=== PATIENT | female | born 1980 | race Caucasian/White ===

== ENCOUNTER 2020-01-24 18:52 | Emergency (ER) | payer BC ==
--- OUTSIDE RECORDS SUMMARY | 2020-01-24 18:54 | XMS REPORT | Summary of Care ---
:1980 Author Organization [facility] - [facility] Address [address] [place] [id number] Care Team Providers Name Role Phone Pcp, Patient Does Not Have A Primary Care Provider +1-000-00 0-0000 Reason for Visit Reason Comments Wound Auth/Cert Status Reason Specialty Diagnoses / Referred By Referred To Procedures Contact Contact Emergency Medicine [facility] Em ergency Dept [address] [place] [address] Fax: Encounter Details Date Type Department Care Team Description 12/02/2019 Emergency ADC-Emergency Radha Ramsay, PAC Cellulitis of right Department [address] [facility] [address] lopez (Primary Dx) [address] [place] [address] [phone] [place] [address] [phone] Allergies No Known Allergiesdocumented as of this encounter (statuses as of 12/02/2019) Medications Medication Sig Dispensed Refills Start Date End Date Status levoFLOXacin 750 mg Take 1 tablet 8 tablet 0 02/27/2018 Active tabletIndications: by mouth every Pyelonephritis 24 (twenty-four) hours. cyanocobalamin, Take 1,000 mcg 30 capsule 0 02/27/2018 Active vitamin B-12, 1,000 by mouth daily. mcg CapIndications: Pyelonephritis clindamycin 150 mg Take 3 capsules 90 capsule 0 12/02/201907/2019 Active capsuleIndications: by mouth 3 Cellulitis of right (three) times hand daily for 10 days. sulfamethoxazole-trime Take 1 tablet 20 tablet 0 12/02/2019 Active thoprim 800-160 mg per by mouth every tabletIndications: 12 (twelve) Cellulitis of right hours. hand documented as of this encounter (statuses as of 12/02/2019) Active Problems Problem Noted Date Pyelonephritis 02/25/2018 documented as of this encounter (statuses as of 12/02/2019) Immunizations Name Administration Dates Next Due Influenza Virus Vaccine Quad .5 mL 02/27/2018 (Deferred: - patient has IM 6+ MO active infection) documented as of this encounter Social History Tobacco Use Types Packs/Day Years Used Date Current Every Day Smoker Smokeless Tobacco: Never Used Sex Assigned at Date Recorded Not on file COVID-19 Exposure Response Date Recorded In the last month, have you been in contact with No / Unsure 12/02/2019 4:59 PM CDT someone who was confirmed or suspected to have Coronavirus / COVID-19? documented as of this encounter Last Filed Vital Signs Vital Sign Reading Time Taken Comments Blood Pressure 125/83 12/02/2019 6:21 PM CDT Pulse 68 12/02/2019 6:21 PM CDT Temperature 36.7 C (98.1 F) 12/02/2019 6:21 PM CDT Respiratory Rate 20 12/02/2019 6:21 PM CDT Oxygen Saturation 96% 12/02/2019 6:00 PM CDT Inhaled Oxygen Concentration - - Weight 65.8 kg (145 lb) 12/02/2019 5:01 PM CDT Height 160 cm (5' 3") 12/02/2019 5:01 PM CDT Body Mass Index 25.69 12/02/2019 5:01 PM CDT documented in this encounter Discharge Instructions Radha Hill, MATTY - 12/02/2019DIAGNOSIS 1. Cellulitis right hand NO LIFE-THREATENING FINDINGS ON TODAY'S EXAM. PROCEDURES IN THE ER TODAY: none MEDICATIONS ADMINISTERED IN THE ER TODAY: Clindamycin 600mg injection YOUR PRESCRIPTIONS AND [id number] MEDICATION RECOMMENDATIONS: Clindamycin 450mg capsules Bactrim DS tablets SPECIAL CARE INSTRUCTIONS: 1. Keep wound clean and dry, and keep it covered until it has completely healed. 2. Clean wound and change bandage 2-3 times a day. 3. Continue taking antibiotics until they are completed. 4. Follow up with a primary care physician or urgent care if you don't feel like the abscess has completely healed by the end of the antibiotics. 5. Return to the ER if your abscess starts getting worse again. FOLLOW-UP RECOMMENDATIONS: RECOMMEND FOLLOW-UP WITH A PRIMARY CARE PROVIDER OR SPECIALIST IN 2-5 DAYS, ESPECIALLY IF NO IMPROVEMENT IN SYMPTOMS. TO FOLLOW-UP WITHIN THE [facility], TRY THESE OPTIONS (CLINIC APPOINTMENTS AVAILABLE ON [id number] BASIS): 1. SCHEDULE AN APPOINTMENT ONLINE AT [facility] 2. OR CALL THE [facility] AT OR 3. OR CALL YOUR [facility] PHYSICIAN'S OFFICE DIRECTLY IF YOU ARE ALREADY AN ESTABLISHED [facility] PATIENT. OR, YOU MAY FOLLOW-UP WITH A PROVIDER OF YOUR CHOICE, SUCH : 1. A PHYSICIAN OF YOUR CHOICE 2. [facility], . LOCATIONS IN [facility] 3. [facility], [address], [place]; [phone] RETURN TO ER FOR WORSENING OF SYMPTOMS. AttachmentsThe following attachments cannot be sent through Care Everywhere.Skin Infection, Cellulitis ([place])documented in this encounter ED Notes Gertrude Sanchez RN - 12/02/2019 4:59 PM CDTPatient states: "I was in [place] yesterday and I woke up and I had a blister on my finger and uh yesterday I was driving home and I took a picture so I could keep an eye on it. This morning when I woke up it's gotten more swollen and red. I can feel a shooting pain into my arm" Noted: wound to right 2nd finger, approx 1 cm wide, circular with redness to knuckle. Pmhx: none Tetanus: Unknown. documented in this encounter Miscellaneous Notes ED Nurse Note - Donna Amos RN - 12/02/2019 6:22 PM CDTPatient provided discharge instructions, AVS, Prescriptions, return precautions, wound care instructions, and told to follow-up with PCP. All questions, answered, no signs of adverse reactions to IM clindamycin given in ED. Patient verbalized understanding of instructions and will return if condition worsens. Patient ambulated out of ED in no acute distress. documented in this encounter Plan of Treatment Name Type Priority Associated Diagnoses Date/Ti me WOUND/ASPIRATE OR LAB IZZY Cellulitis of right carrasco d 12/02/2019 5:40 PM CDT ABSCESS CULTURE WOUND CULTURE LAB STAT Cellulitis of right hand 5:40 PM CDT Name Type Priority Associated Diagnoses Order S chedule WOUND/ASPIRATE OR LAB IZZY Cellulitis of right carrasco d ONCE for 1 Occurrences ABSCESS CULTURE starting until 12/02/2019 WOUND CULTURE LAB IZZY Cellulitis of right hand On ce for 1 Occurrences starting 2019 until 12/02/2019 Health Maintenance Due Date Last Done Comments Depression Screening 1991 DTaP,Tdap,and Td Vaccines (1 - 09/16/1998 Tdap) PAP SMEAR 09/16/2000 Breast Cancer Screening 2019 (MAMMOGRAM) INFLUENZA VACCINE (#1) 2019 PNEUMOCOCCAL 0-64 YEARS COMBINED Aged Out No longer eligible based on SERIES patient's age to complete this topic documented as of this encounter Procedures Procedure Name Priority Date/Time Associated Diagnosis Comme nts NOTICE OF PRIVACY Routine 12/02/2019 4:57 PM CDT PRACTICES documented in this encounter Results Not on filedocumented in this encounter Visit Diagnoses Diagnosis Cellulitis of right hand - Primary Cellulitis and abscess of hand, except f ingers and thumb documented in this encounter Administered Medications Medication Order MAR Action Action Date Dose Rate Site clindamycin (CLEOCIN) Given 12/02/2019 5:43 PM 600 mg Bilateral Gluteus injection 600 mg CDT 600 mg, Intramuscular, ONCE, 1 dose, 12/02/19 at 1845, IZZY, Reason for Anti-Infective: Documented Infection, Documented Infection Site: Skin / Soft Tissue, Duration of Therapy: 10 days, Restricted use approved by: SAM PROVIDER documented in this encounter
--- OUTSIDE RECORDS SUMMARY | 2020-01-24 18:54 | XMS REPORT | Summary of Care ---
:1980 Author Organization [facility] - Health Address [address] [place] [address] Care Team Providers Name Role Phone Pcp, Patient Does Not Have A Primary Care Provider +1-000-00 0-0000 Encounter Details Date Type Department Care Team Description 12/02/2019 Orders Only [facility] Doctor Unassigned, No [address] [facility] [place] [address] Allergies No Known Allergiesdocumented as of this encounter (statuses as of 12/02/2019) Medications Medication Sig Dispensed Refills Start Date End Date Status levoFLOXacin 750 mg Take 1 tablet 8 tablet 0 02/27/2018 Active tabletIndications: by mouth every Pyelonephritis 24 (twenty-four) hours. cyanocobalamin, vitamin Take 1,000 mcg 30 capsule 0 02/27/2018 Active B-12, 1,000 mcg by mouth daily. CapIndications: Pyelonephritis documented as of this encounter (statuses as [...] Assigned at Date Recorded Not on file documented as of this encounter Last Filed Vital Signs Not on filedocumented in this encounter Plan of Treatment Health Maintenance Due Date Last Done Comments Depression Screening 1991 DTaP,Tdap,and Td Vaccines (1 - 09/16/1998 Tdap) PAP SMEAR 09/16/2000 Breast Cancer Screening 2019 (MAMMOGRAM) INFLUENZA VACCINE (#1) 2019 PNEUMOCOCCAL 0-64 YEARS COMBINED Aged Out No longer eligible based on SERIES patient's age to complete this topic documented as of this encounter Procedures Procedure Name Priority Date/Time Associated Diagnosis Comme nts CONSENT/REFUSAL FOR Routine 12/02/2019 4:56 PM CDT DIAGNOSIS AND TREATMENT documented in this encounter Results Not on filedocumented in this encounter Insurance Payer Benefit Plan / Subscriber ID Effective Dates Phone Addre ss Type Group [facility] [employer] [id number] 2018-Kayleigh HMO/PPO/PO t S documented as of this encounter
--- OUTSIDE RECORDS SUMMARY | 2020-01-24 18:54 | XMS REPORT | Continuity of Care Document ---
:1980 Author Organization [facility] t Address [address] [place] [address] Care Team Providers Name Role Phone Devendra STARR S Attending Clinician Doctor Unassigned, Name Attending Clinician Unavailable Problems This patient has no known problems. Allergies, Adverse Reactions, Alerts This patient has no known allergies or adverse reactions. Medications This patient has no known medications. Procedures This patient has no known procedures. Encounters Start End Encounter Admission Attending Care Care Encounter Source Date/Time Date/Time Type Type Clinicians Facility Department ID 2019-12-02 2019-12-02 Emergency YARON Ramsay [id number] 17:04:00 18:50:00 Radha Mckeon [id number] [place] [id number] [place] [id number] 2019-12-02 2019-12-02 Orders Doctor ANISHA [id number] 00:00:00 00:00:00 Only UnassSERGIO snyder [id number] [place] [facility] [id number] Results This patient has no known results.
[2020-01-24] MEDS ORDERED: DIAZEPAM 5 MG TABLET ONE (19:28)
[2020-01-24] MEDS ORDERED: MORPHINE 4 MG/ML SYR ONE (19:28)
[2020-01-24 20:33] LABS: Urine Blood 1+ (NEG); Urine Glucose NEGATIVE (NEG); Urine Protein TRACE (NEG); Urine Specific Gravity 1.025 (1.005-1.030); Urine pH 7.5 (5.0-7.0)
[2020-01-24 20:50] LABS: Barbiturates NEGATIVE (NEGATIVE); Benzodiazepines NEGATIVE (NEGATIVE); Cocaine NEGATIVE (NEGATIVE); METHAMPHETAM NEGATIVE (NEGATIVE); Methadone NEGATIVE (NEGATIVE); Opiates POSITIVE (NEGATIVE); Phencyclidine NEGATIVE (NEGATIVE); THC Cannibis POSITIVE (NEGATIVE)
[2020-01-24] MEDS ORDERED: KETOROLAC 30 MG/ML INJ ONE (21:11)
[2020-01-24] MEDS ORDERED: NA CHLORIDE 0.9% 1,000 ML ONE (21:11)
--- NOTE | 2020-01-24 21:32 | RAD REPORT ---
EXAM DESCRIPTION: CT - Stone Protocol - 01/24/2020 8:54 pm CLINICAL HISTORY: FLANK PAIN COMPARISON: No comparisons TECHNIQUE: Axial 5 mm thick images were obtained without oral or IV contrast. The [id number] span s the entirety of the system including uppermost abdomen and lung bases. All CT scans are performed using dose optimization technique as appropriate and may include automated exposure control or mA/KV adjustment according to patient size. FINDINGS: No hydronephrosis is present and no obstructing ureteral calculi. Patient has multiple 2-6 mm nonobstructing calyx or parenchymal calculi. Kidneys have lobulated contours. No suspicious renal masses. Isodense masses and pyelonephritis are not excluded on a stone protocol CT scan. No signific ant adrenal finding. No urinary bladder suspicious finding. Multiple phleboliths are present. No uret eral calculi can be confirmed. Imaged portions of the liver, spleen and pancreas show no suspicious findings on non-contrast imaging . Multiple gallstones are present within a contracted gallbladder. No biliary tree dilatation. No suspicious bowel findings. Appendectomy clips are evident. No acute bowel process seen. Moderate s tool volume seen throughout the colon. No hernia, mass or bulky lymphadenopathy noted. No free air, free fluid or inflammatory stranding. No uterine abnormality. Ovaries are prominent. Ovarian detail is limited due to adjacent isodense bowel . No significant bony abnormality. IMPRESSION: Multi stone cholelithiasis without CT findings for acute cholecystitis. No biliary tree dilatation. No hydronephrosis or obstructing calculi seen. Multiple phleboliths are present but no calculi can be demonstrated to be in the ureter. Patient has multiple nonobstructing parenchymal or calyx calculi. No acute GI finding.
--- NOTE | 2020-01-24 21:38 | RAD REPORT ---
EXAM DESCRIPTION: CT - Spine Lumbar Wo Con - 01/24/2020 8:54 pm CLINICAL HISTORY: LOWER BACK PAIN LOWER BACK PAIN, left lower extremity radiculopathy COMPARISON: None. TECHNIQUE: Thin section axial imaging of the lumbar spine was performed. Sagittal and coronal recon struction images were generated and reviewed. All CT scans are performed using dose optimization technique as appropriate and may include automated exposure control or mA/KV adjustment according to patient size. FINDINGS: Lumbar bodies are normal in height and alignment. No fracture is identified. No lytic, s clerotic or expansile bony destructive process. No paraspinal mass or other paraspinal abnormality. T11-12 disc space narrowing is present with Schmorl's node in the inferior endplate T11. Posterior sp urring projects into the central canal but does not cause spinal stenosis. L4-5 disc space narrowing. L1-2 level: No significant findings. L2-3 level: No significant findings. L3-4 level: No significant findings. L4-5 level: Disc space narrowing degenerative gas in the disc space. Left paracentral large disc fausto iation is present 8 mm AP x 13 mm TR. This flattens the left anterior thecal sac. There is soft tissu e attenuation approximately 7 mm in size along the left posterior wall L4 extending towards the L4 la teral recess. This is suspected to be extruded disc fragment from the L4-5 disc space. L5-S1 level: Disc bulge extends across the central canal and into each exit foramen secondary to bila teral L5 pars interarticularis defects and slight anterior subluxation. Bilateral foraminal stenosis is present. No central spinal stenosis. IMPRESSION: L4-5 large left-sided disc herniation flattening the thecal sac. There is probably an ex truded, superiorly extended fragment on the left. Bilateral L5 pars defects with slight anterior subluxation. Bulging of disc material extends across t he central canal and into each exit foramen. All CT scans are performed using dose optimization technique as appropriate and may include automated exposure control or mA/KV adjustment according to patient size.
[2020-01-24 21:46] LABS: Absolute Lymphocytes (CBC) 3.6 K/uL (0.7-4.9); Basophils % 0.8 % (0-1.3); Hematocrit 36.4 % (36.0-45.0); Lymphocytes % 38.2 % (15.3-44.8); MPV 7.3 fL (7.6-11.3); RBC Red Blood Cell Count 3.47 M/uL (3.86-4.86)
[2020-01-24 22:03] LABS: ALT/SGPT 19 U/L (12-78); AST/SGOT 17 U/L (15-37); Albumin 3.8 g/dL (3.4-5.0); Alkaline Phosphatase 52 U/L (45-117); BUN Blood Urea Nitrogen 12 mg/dL (7-18); Bicarbonate 24 mmol/L (21-32); Bilirubin Direct < 0.1 mg/dL (0-0.2); Bilirubin Total 0.3 mg/dL (0.2-1.0); Glucose Level 107 mg/dL (74-106); Protein, Total 7.1 g/dL (6.4-8.2); Sodium Level 142 mmol/L (136-145)
--- NOTE | 2020-01-24 22:53 | RAD REPORT ---
EXAM DESCRIPTION: RAD - Hip Left 2 View - 01/24/2020 8:40 pm CLINICAL HISTORY: PAIN, back pain left lower extremity radiculopathy COMPARISON: No comparisons FINDINGS: AP and frogleg views of the left hip were obtained. There is no fracture or dislocation. No acute or destructive bony process seen. No soft tissue abnormality. IMPRESSION: Negative left hip examination for acute or significant findings.
--- NOTE | 2020-01-24 23:52 | EDPHYS ---
Physician Documentation [facility] Name: Namita Blackman Age: 39 yrs Sex: Female : 1980 Arrival Date: 01/24/2020 Time: 18:53 Bed 5 Private MD: ED Physician Tyler Ruiz HPI: 01/23 19:19 This 39 yrs old Female presents to ER via Ambulatory with complaints of Hip mh7 Pain. 19:19 The patient or guardian reports pain. mh7 19:44 that occurred at home, sustained from unknown reason, There is no obvious deformity, mh7 The patient is able to ambulate with assistance. The patient is able to bear partial body weight. The patient's discomfort radiates to the left leg. Patient states that she was doing laundry when she started having left hip pain that radiates down her left leg. The complaints affect the left hip. Onset: The symptoms/episode began/occurred today, 2 hour(s) ago. Modifying factors: The symptoms are alleviated by nothing, the symptoms are aggravated by any movement. Associated signs and symptoms: Loss of consciousness: the patient experienced no loss of consciousness, Pertinent negatives: abdominal pain, altered mental status, anorexia, chest pain, diarrhea, dizziness, dysuria, fever, headache, incontinence, nausea, shortness of breath, vomiting, weakness. Severity of symptoms: At their worst the symptoms were moderate, earlier today, in the emergency department the symptoms are unchanged. Historical: - Allergies: 19:13 No Known Allergies; dm5 - Home Meds: 19:13 None [Active]; dm5 - PMHx: 19:13 None; dm5 - PSHx: 19:13 Appendectomy; Tonsillectomy; dm5 ROS: 19:44 Constitutional: Negative for fever, chills, and weight loss, Eyes: Negative for injury, mh7 pain, redness, and discharge, ENT: Negative for injury, pain, and discharge, Neck: Negative for injury, pain, and swelling, Cardiovascular: Negative for chest pain, palpitations, and edema, Respiratory: Negative for shortness of breath, cough, wheezing, and pleuritic chest pain, Abdomen/GI: Negative for abdominal pain, nausea, vomiting, diarrhea, and constipation, Back: Negative for injury and pain, : Negative for injury, bleeding, discharge, and swelling, Skin: Negative for injury, rash, and discoloration, Neuro: Negative for headache, weakness, numbness, tingling, and seizure, Psych: Negative for depression, anxiety, suicide ideation, homicidal ideation, and hallucinations, Allergy/Immunology: Negative for hives, rash, and allergies, Endocrine: Negative for neck swelling, polydipsia, polyuria, polyphagia, and marked weight changes, Hematologic/Lymphatic: Negative for swollen nodes, abnormal bleeding, and unusual bruising. Exam: 19:44 Head/Face: Normocephalic, atraumatic. Eyes: Pupils equal round and reactive to light, mh7 extra-ocular motions intact. Lids and lashes normal. Conjunctiva and sclera are non-icteric and not injected. Cornea within normal limits. Periorbital areas with no swelling, redness, or edema. Neck: Trachea midline, no thyromegaly or masses palpated, and no cervical lymphadenopathy. Supple, full range of motion without nuchal rigidity, or vertebral point tenderness. No Meningismus. Chest/axilla: Normal chest wall appearance and motion. Nontender with no deformity. No lesions are appreciated. Cardiovascular: Regular rate and rhythm with a normal S1 and S2. No gallops, murmurs, or rubs. Normal PMI, no JVD. No pulse deficits. Respiratory: Lungs have equal breath sounds bilaterally, clear to auscultation and percussion. No rales, rhonchi or wheezes noted. No increased work of breathing, no retractions or nasal flaring. Abdomen/GI: Soft, non-tender, with normal bowel sounds. No distension or tympany. No guarding or rebound. No evidence of tenderness throughout. 19:44 Skin: Warm, dry with normal turgor. Normal color with no rashes, no lesions, and no evidence of cellulitis. 19:44 Neuro: Awake and alert, GCS 15, oriented to person, place, time, and situation. Cranial nerves II-XII grossly intact. Motor strength 5/5 in all extremities. Sensory grossly intact. Cerebellar exam normal. Normal gait. Psych: Awake, alert, with orientation to person, place and time. Behavior, mood, and affect are within normal limits. 19:44 Constitutional: The patient appears in no acute distress, alert, awake, anxious, uncomfortable. 19:44 Back: pain, that is moderate, of the lumbar area and left low back, ROM is painful, with all movement, normal spinal alignment noted, CVA tenderness, is absent, vertebral tenderness, is appreciated at lumbar area, muscle spasm, is appreciated in the lumbar area and left low back. 19:44 Musculoskeletal/extremity: Extremities: noted in the left posterior lateral hip: pain, tenderness, ROM: limited active range of motion due to pain, in the left leg, limited passive range of motion due to pain, in the left leg, Circulation is intact in all extremities. Pulses: are normal with no appreciated deficits, Perfusion: the patient is normally perfused throughout, Perfusion: the extremity is normally perfused throughout, Calf tenderness, is absent, Edema, is not appreciated, Sensation intact. Compartment Syndrome exam of affected extremity: is normal. no numbness, no tingling, no sensation deficit, no palor, no weak pulses, Joints: the left hip displays painful range of motion, Weight bearing: Tendon exam: specific tendon testing normal through active and passive range of motion Vital Signs: 19:10 BP 119 / 91; Pulse 89; Resp 20; Temp 98.1; Pulse Ox 98% on R/A; Weight 66.68 kg; Height dm5 5 ft. 3 in. (160.02 cm); Pain 10/10; 21:45 BP 99 / 73; Pulse 63; Resp 16; Pulse Ox 100% on R/A; jb4 23:15 BP 101 / 62; Pulse 66; Resp 16; Pulse Ox 94% on R/A; jb4 01/24 00:00 BP 107 / 70; Pulse 66; Resp 16; Pulse Ox 100% on R/A; jb4 00:55 BP 98 / 59; Pulse 85; Resp 16; Pulse Ox 99% on R/A; jb4 01:30 BP 97 / 55; Pulse 58; Resp 16; Pulse Ox 94% on R/A; jb4 02:15 BP 102 / 50; Pulse 55; Resp 16; Pulse Ox 96% on R/A; jb4 01/23 19:10 Body Mass Index 26.04 (66.68 kg, 160.02 cm) dm5 MDM: 01/23 23:48 Differential diagnosis: hip fracture, bursitis, arthritis, strain, Lower Back pain. [facility] Data reviewed: vital signs, nurses notes, lab test result(s), CBC, electrolytes, urinalysis, radiologic studies, CT scan. Data interpreted: Pulse oximetry: on room air is 100 %. Interpretation: normal. Counseling: I had a detailed discussion with the patient and/or guardian regarding: the historical points, exam findings, and any diagnostic results supporting the discharge/admit diagnosis, lab results, radiology results, the need to transfer to another facility, for higher level of care, [facility] does not immediately have the required specialist. Response to treatment: the patient's symptoms have mildly improved after treatment. 23:51 Patient medically screened. [facility] 01/23 19:13 Order name: UDS; Complete Time: 21:10 [facility] 01/23 20:26 Order name: Urine Dipstick--Ancillary (enter results); Complete Time: 20:35 tt3 01/23 20:26 Order name: Urine --Ancillary (enter results); Complete Time: 20:35 tt3 01/23 20:49 Order name: CBC with Diff [facility] 01/23 20:49 Order name: Basic Metabolic Panel [facility] 01/23 20:49 Order name: LFT's; Complete Time: 22:39 [facility] 01/23 19:32 Order name: Hip Left 2 View XRAY; Complete Time: 23:42 [facility] 01/23 19:32 Order name: CT Lumbar Spine Wo Con; Complete Time: 21:43 [facility] 01/23 20:48 Order name: CT Stone Protocol; Complete Time: 21:43 [facility] 01/23 20:50 Order name: CBC with Automated Diff; Complete Time: 21:56 [facility] 01/23 20:50 Order name: Basic Metabolic Panel; Complete Time: 22:39 [facility] 01/24 01:42 Order name: SARS-COV-2 RT PCR [facility] 01/23 19:13 Order name: Urine Dipstick-Ancillary (obtain specimen); Complete Time: 20:46 [facility] 01/23 19:13 Order name: Urine Test (obtain specimen); Complete Time: 20:45 [facility] Administered Medications: 19:20 Drug: morphine 4 mg Route: IM; Site: left deltoid; jb4 19:50 Follow up: Response: No adverse reaction; Pain is decreased jb4 19:20 Drug: Valium 5 mg Route: PO; jb4 20:20 Follow up: Response: No adverse reaction; No change in condition jb4 21:39 Drug: NS 0.9% 1000 ml Route: IV; Rate: 1000 ml; Site: right forearm; lp1 22:30 Follow up: Response: No adverse reaction; IV Status: Completed infusion; IV Intake: jb4 1000ml 21:43 Drug: TORadol 30 mg Route: IVP; Site: right antecubital; jb4 22:15 Follow up: Response: No adverse reaction; Marked relief of symptoms; Pain is decreased jb4 01/24 02:20 Drug: fentaNYL (PF) 25 mcg Route: IVP; Site: right antecubital; jb4 02:30 Follow up: Response: Adverse reaction, Physician notified jb4 Disposition: 01/24/20 23:[address] [facility]. Diagnosis are Lumbar Disc Herniation, Intractable Back Pain. - Reason for transfer: Higher level of care. - Accepting physician is Dr. Lemus. - Condition is Stable. - Problem is new. - Symptoms have improved. Signatures: Dispatcher [employer] [facility] Caro Quiroga RN RN dm5 Debbie Jacobsen RN RN lp1 Kaiden Arias RN RN jb4 Tyler Ruiz MD MD mh7 Corrections: (The following items were deleted from the chart) 00:40 01/23 23:51 CORONAVIRUS+MR.LAB.BRZ ordered. [facility] 01/24 00:41 01/23 23:51 01/24/2020 23:[address] [facility]. mh7 Diagnosis is Lumbar Disc Herniation; Intractable Back Pain. Reason for transfer: Higher level of care. Accepting physician is Dr. Saavedra. Condition is Stable. Problem is new. Symptoms have improved. 7 01/24 02:35 00:41 01/24/2020 23:[address] [facility]. jb4 Diagnosis is Lumbar Disc Herniation; Intractable Back Pain. Reason for transfer: Higher level of care. Accepting physician is Dr. Lemus. Condition is Stable. Problem is new. Symptoms have improved. 7
--- NOTE | 2020-01-24 23:52 | ER ---
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 Pain rated at 10/10 at this time. Pt has taken 2 tramadol [employer] EFF[employer]IST with no relief. Pt denies injury and states that they were doing laundry when the pain started. Coronavirus screen:. Initial Sepsis Screen: Does the patient meet any 2 criteria? No. Patient's initial sepsis screen is negative. Does the patient have a suspected source of infection? No. Patient's initial sepsis screen is negative. Risk Assessment: Do you want to hurt yourself or someone else? Patient reports no desire to harm self or others. Onset of symptoms was January 24, 2020. 19:10 Method Of Arrival: Ambulatory dm5 19:10 Acuity: SAWYER 3 dm5 Historical: - Allergies: 19:13 No Known Allergies; dm5 - Home Meds: 19:13 None [Active]; dm5 - PMHx: 19:13 None; dm5 - PSHx: 19:13 Appendectomy; Tonsillectomy; dm5 Screenin:00 Abuse screen: Denies threats or abuse. Nutritional screening: No deficits noted. jb4 Tuberculosis screening: No symptoms or risk factors identified. Fall Risk None identified. Assessment: 19:00 General: Appears in no apparent distress. uncomfortable, Behavior is calm, cooperative, jb4 appropriate for age. Pain: Complains of pain in left low back Pain radiates to left knee Pain currently is 10 out of 10 on a pain scale. Neuro: Level of Consciousness is awake, alert, obeys commands, Oriented to person, place, time, situation. Cardiovascular: Patient's skin is warm and dry. Respiratory: Airway is patent Respiratory effort is even, unlabored, Respiratory pattern is regular, symmetrical. GI: No signs and/or symptoms were reported involving the gastrointestinal system. : No signs and/or symptoms were reported regarding the genitourinary system. EENT: No signs and/or symptoms were reported regarding the EENT system. Derm: Skin is intact, Skin is pink, warm \T\ dry. Musculoskeletal: Circulation, motion, and sensation intact. Range of motion: intact in all extremities. 20:00 Reassessment: Patient appears in no apparent distress at this time. Patient and/or jb4 family updated on plan of care and expected duration. Pain level reassessed. Patient is alert, oriented x 3, equal unlabored respirations, skin warm/dry/pink. Patient denies pain at this time. Patient states symptoms have improved. 20:50 Reassessment: Patient appears in no apparent distress at this time. Patient and/or jb4 family updated on plan of care and expected duration. Pain level reassessed. Patient is alert, oriented x 3, equal unlabored respirations, skin warm/dry/pink. Pt reports an increase in pain, provider notified, see mar for orders. 21:45 Reassessment: Patient appears in no apparent distress at this time. Patient and/or jb4 family updated on plan of care and expected duration. Pain level reassessed. Patient is alert, oriented x 3, equal unlabored respirations, skin warm/dry/pink. Patient states feeling better. 23:00 Reassessment: Patient appears in no apparent distress at this time. Patient and/or jb4 family updated on plan of care and expected duration. Pain level reassessed. Patient is alert, oriented x 3, equal unlabored respirations, skin warm/dry/pink. Patient states feeling better. 01/24 00:00 Reassessment: Patient appears in no apparent distress at this time. Patient and/or jb4 family updated on plan of care and expected duration. Pain level reassessed. Patient is alert, oriented x 3, equal unlabored respirations, skin warm/dry/pink. 01:00 Reassessment: Patient appears in no apparent distress at this time. Patient and/or jb4 family updated on plan of care and expected duration. Pain level reassessed. Patient is alert, oriented x 3, equal unlabored respirations, skin warm/dry/pink. 02:30 Reassessment: Patient appears in no apparent distress at this time. Patient and/or jb4 family updated on plan of care and expected duration. Pain level reassessed. Patient is alert, oriented x 3, equal unlabored respirations, skin warm/dry/pink. Vital Signs: 01/23 19:10 BP 119 / 91; Pulse 89; Resp 20; Temp 98.1; Pulse Ox 98% on R/A; Weight 66.68 kg; Height dm5 5 ft. 3 in. (160.02 cm); Pain 10/10; 21:45 BP 99 / 73; Pulse 63; Resp 16; Pulse Ox 100% on R/A; jb4 23:15 BP 101 / 62; Pulse 66; Resp 16; Pulse Ox 94% on R/A; jb4 01/24 00:00 BP 107 / 70; Pulse 66; Resp 16; Pulse Ox 100% on R/A; jb4 00:55 BP 98 / 59; Pulse 85; Resp 16; Pulse Ox 99% on R/A; jb4 01:30 BP 97 / 55; Pulse 58; Resp 16; Pulse Ox 94% on R/A; jb4 02:15 BP 102 / 50; Pulse 55; Resp 16; Pulse Ox 96% on R/A; jb4 01/23 19:10 Body Mass Index 26.04 (66.68 kg, 160.02 cm) dm5 ED Course: 01/23 18:53 Patient arrived in ED. rg4 18:59 Tyler Ruiz MD is Attending Physician. mh7 19:07 Kaiden Arias, RN is Primary Nurse. jb4 19:12 Triage completed. dm5 20:40 Hip Left 2 View XRAY In Process Unspecified. EDMS 20:54 CT Lumbar Spine Wo Con In Process Unspecified. EDMS 20:54 CT Stone Protocol In Process Unspecified. EDMS 21:39 Inserted saline lock: 20 gauge in right forearm, using aseptic technique. Blood lp1 collected. 22:[address] [facility] with Salma. Stated she would work on the request and tt3 call back. 22:39 Salma called back with Dr. Saavedra to talk to Dr. Ruiz. tt3 22:59 Salma called back with Dr. Lemus to speak to Dr. Ruiz regarding the transfer tt3 request. 01/24 02:34 No provider procedures requiring assistance completed. IV discontinued. jb4 Administered Medications: 01/23 19:20 Drug: morphine 4 mg Route: IM; Site: left deltoid; jb4 19:50 Follow up: Response: No adverse reaction; Pain is decreased jb4 19:20 Drug: Valium 5 mg Route: PO; jb4 20:20 Follow up: Response: No adverse reaction; No change in condition jb4 21:39 Drug: NS 0.9% 1000 ml Route: IV; Rate: 1000 ml; Site: right forearm; lp1 22:30 Follow up: Response: No adverse reaction; IV Status: Completed infusion; IV Intake: jb4 1000ml 21:43 Drug: TORadol 30 mg Route: IVP; Site: right antecubital; jb4 22:15 Follow up: Response: No adverse reaction; Marked relief of symptoms; Pain is decreased jb4 01/24 02:20 Drug: fentaNYL (PF) 25 mcg Route: IVP; Site: right antecubital; jb4 02:30 Follow up: Response: Adverse reaction, Physician notified jb4 Intake: 01/23 22:30 IV: 1000ml; Total: 1000ml. jb4 Outcome: 23:51 ER care complete, transfer ordered by MD. sarah 01/24 02:34 Transferred by ground EMS EMS. to [facility], Transfer form jb4 completed. X-rays sent w/ patient. Condition: stable Discharge instructions given to patient, Instructed on the need for transfer, Demonstrated understanding of instructions. 02:35 Patient left the ED. jb4 Signatures: Dispatcher [employer] Caro Elise RN RN dm5 Debbie Jacobsen RN RN lp1 Yajaira Pires4 Kaiden Arias RN RN jb4 Tyler Ruiz MD MD mh7 Candido Eisenberg tt3
[2020-01-25] MEDS ORDERED: FENTANYL CITR 100 MCG/2 ML ONE (02:37)
[2020-01-27 06:19] VITALS: TEMP 98.1
[2020-01-27 06:27] VITALS: BP 102/50; O2SAT 96
== END 2020-01-25 02:35 | disposition short-term general hospital (02) ==
LOC: ER 18:52
DX: M51.26 Other intervertebral disc displacement, lumbar region (principal); M54.9 Dorsalgia, unspecified
CPT/HCPCS: 96361; 85025; 80048; 36415; 81025; 80076; 80307 ×8; 81003; 72131; 76377; 74176; 73502; 96375; 96372; 96374; 99285; U0003; J3010; J7030

== ENCOUNTER 2022-04-05 03:49 | Observation (INO) | payer BC ==
--- OUTSIDE RECORDS SUMMARY | 2022-04-05 03:52 | XMS REPORT | Continuity of Care Document ---
:1980 Author Organization [facility] t Address [address] [facility]. [address] [place] [address] Care Team Providers Name Role Phone Asked, No Pcp Primary Care Physician Unavailable DOMINIC VALENTINE Attending Clinician Unavailable EMY MARIA Attending Clinician Unavailable Enriqueta Eduardo Attending Clinician ENRIQUETA GUTIERREZ Attending Clinician Unavailable Doctor Unassigned, [place] Attending Clinician Unavailable GEN CONNER Attending Clinician Unavailable DOMINIC VALENTINE Admitting Clinician Unavailable RUBY ALEJANDRO Admitting Clinician Unavailable GEN CONNER Admitting Clinician Unavailable Payers Payer Name Policy Type Policy Number Effective Date Expiration Date Joseluis hudson [facility] [id number] 2019 00:00:00 [employer] [id number] 2018 00:00:00 Problems Condition Condition Condition Status Onset Resolution Last Treating Co mments Source Name Details Category Date Date Treatment Clinician Date Lumbar Lumbar Disease Active 2019-[address] [facility] [address] radiculopa radiculopa 2-20 Debra kes thy thy 00:00: Medical 00 [place] Lumbar Lumbar Disease Active 2019-02 [facility] herniated herniated 2-20 Lu s disc disc 00:00: Medical 00 [place] Pyelonephr Pyelonephr Disease Active U nivdavid itis itis 1-21 ity of 00:00: [address] Allergies, Adverse Reactions, Alerts Allergy Allergy Status Severity Reaction(s) Onset Inactive Treating Comm ents Source Name Type Date Date Clinician NO KNOWN Allergy Active [facility] L[place] [facility] NO KNOWN Drug Active [facility] ALLERGIE Class ity of S [facility] Social History Social Habit Start Date Stop Date Quantity Comments Source Exposure to Not sure [facility] SARS-CoV-2 (event) [facility] History of tobacco Smokes tobacco [facility] Cigarettes smoked 2020-09-06 2020-09-[address] current (pack per 00:00:00 00:00:00 [facility] l day) - Reported Alcohol intake 2020-09-06 2020-09-06 Ex-drinker [facility] 00:00:00 00:00:00 (finding) [facility] Cigarette 2020-01-25 2020-01-25 [facility] pack-years 00:00:00 00:00:[address] [facility] Tobacco use and 2020-01-25 2020-01-[address] Debra kes exposure 00:00:00 00:00:[address] [facility] Sex Assigned At [birth year] [facility] 00:00:00 00:00:00 [facility] Smoking Status Start Date Stop Date Source Current some day smoker 2020-01-25 00:00:00 [facility] Current every day smoker 2019-12-02 00:00:00 Uni versity [facility] Medications Ordered Filled Start Stop Current Ordering Indication Dosage Frequency Signature Comments Components Source Medication Medication Date Date Medication? Clinician (SIG) Name Name cyanocobala 2019-02 Yes 100ug QD Take [address] min, 2-22 mcg by [employer] vitamin 13:10: mouth Medical B-12, 04 daily. [place] (vitamin B-12) 100 MCG tablet famotidine 2019-02 Yes 20mg Q.5D Take 1 [facility] (PEPCID) 20 2-21 tablet (20 Debra kes MG tablet 00:00: mg total) Med ical 00 by mouth 2 Center (two) times daily. clindamycin 2019-02- No 600mg 600 mg, U nivers (CLEOCIN) 12-01 Intramuscu ity of injection 23:45: 22:43 lar, ONCE, [place] 600 mg 00 :00 1 dose, [facility] 12/02/19 at 1845, IZZY
Re ason for Anti-Infec tive: Documented Infection< br>Documen jourdan Infection Site: Skin / Soft Tissue
Duration of Therapy: 10 days
Re stricted use approved by: ADC PROVIDER sulfamethox 2019-02 Yes [id number] 1{tbl} Take 1 Univers azole-trime [id number] tablet by i ty of thoprim 00:00: mouth [place] 800-160 mg 00 every 12 Medic al per tablet (twelve) Branc h hours. clindamycin 2019-02- No [id number] 450mg Take 3 Univers 150 mg 12-12 [id number] capsules ity of capsule 00:00: 05:59 by mouth 3 [place] 00 :00 (three) Medical times Branch daily for 10 days. levoFLOXaci Yes [id number] 750mg Take 1 Univers n 750 mg 1-23 tablet by ity of tablet 00:00: mouth [place] 00 every 24 Medical (twenty-fo Branch ur) hours. cyanocobala Yes [id number] 1000ug Take 1,000 Univers min, 1-23 mcg by ity of vitamin 00:00: mouth [place] B-12, 1,000 00 daily. Medica l mcg [facility] Branch levoFLOXaci Yes [id number] 750mg Take 1 Univers n 750 mg 1-23 tablet by ity of tablet 00:00: mouth [place] 00 every 24 Medical (twenty-fo Branch ur) hours. cyanocobala 2018- Yes [id number] 1000ug Take 1,000 Univers min, 1-23 mcg by ity of vitamin 00:00: mouth [place] B-12, 1,000 00 daily. Medica l mcg [facility] Branch Immunizations Ordered Immunization Filled Immunization Date Status Commen ts Source Name Name Tdap 2020-09-06 Completed [facility] 00:00:00 [facility] COVID-19 [facility] COVID-19 2020-05-12 Completed Vaccine Vaccine 00:00:00 Vital Signs Vital Name Observation Time Observation Value Comments Source HEIGHT 2020-01-25 04:03:00 160 cm WEIGHT 2020-01-25 04:03:00 66.679 kg HEIGHT 2020-01-25 04:03:00 160 cm WEIGHT 2020-01-25 04:03:00 66.679 kg Systolic blood 2019-12-02 23:21:00 125 mm[Hg] Univer sity [facility] Diastolic blood 2019-12-02 23:21:00 83 mm[Hg] Unive rsity [facility] Heart rate 2019-12-02 23:21:00 68 /min [facility] Body temperature 2019-12-02 23:21:00 36.72 Sherita Univ [facility] Respiratory rate 2019-12-02 23:21:00 20 /min [facility] Oxygen saturation in 2019-12-02 23:00:00 96 /min University of Arterial blood by [facility] Pulse oximetry Branch [facility] 2019-12-02 22:01:00 25.69 kg/m2 [facility] Body height 2019-12-02 22:01:00 160 cm [facility] Body weight 2019-12-02 22:01:00 65.772 kg [facility] Systolic blood 2019-12-02 23:21:00 125 mm[Hg] Univer sity [facility] Diastolic blood 2019-12-02 23:21:00 83 mm[Hg] Unive rsity [facility] Heart rate 2019-12-02 23:21:00 68 /min [facility] Body temperature 2019-12-02 23:21:00 36.72 Sherita [facility] Respiratory rate 2019-12-02 23:21:00 20 /min [facility] Oxygen saturation in 2019-12-02 23:00:00 96 /min University of Arterial blood by [facility] Pulse oximetry Branch [facility] 2019-12-02 22:01:00 25.69 kg/m2 [facility] Body height 2019-12-02 22:01:00 160 cm [facility] Body weight 2019-12-02 22:01:00 65.772 kg [facility] Procedures Procedure Date / Time Performed Performing Clinician Sourc e NOTICE OF PRIVACY 2019-12-02 21:57:00 Doctor Unassigned, No Univ ersity [facility] PRACTICES Name [facility] CONSENT/REFUSAL FOR 2019-12-02 21:56:45 [facility], [facility] TREATMENT Plan of Care Planned Activity Planned Date Details Comments Source Future Scheduled 2022-02-[address] [facility] Test 00:00:00 (12+) [code = [facility] DEPRESSION SCREENING (12+)] Future Scheduled 2022-01-26 COVID-19 VACCINE (#1) [facility] Test 19:46:02 [code = COVID-19 VACCINE (#1)] Future Scheduled 2022-01-26 Pneumococcal Vaccine: [facility] Test 19:46:02 Pediatrics (0 to 5 Years) and At-Risk Patients (6 to 64 Years) (1 - PCV) [code = Pneumococcal Vaccine: Pediatrics (0 to 5 Years) and At-Risk Patients (6 to 64 Years) (1 - PCV)] Future Scheduled 2022-01-26 Hepatitis C screening [facility] Test 19:46:02 (procedure) [code = 680133088] Future Scheduled 2022-01-26 Screening [facility] Test 19:46:02 malignant neoplasm of cervix (procedure) [code = 494822252] Future Scheduled 2022-01-26 BREAST CANCER [facility] Test 19:46:02 SCREENING [code = BREAST CANCER SCREENING] Future Scheduled 2022-01-26 INFLUENZA VACCINE Method [facility] Test 19:46:02 [code = INFLUENZA VACCINE] Future Scheduled 2021-10-06 INFLUENZA VACCINE (#1) [facility] Test 00:00[facility]00 [code = INFLUENZA Medical Ce nter VACCINE (#1)] Future Scheduled 2021-01-[address] [facility] Test 00:00:00 Counseling and Medical Cente r Screening (12+) [code = Tobacco Cessation Counseling and Screening (12+)] Future Scheduled 2000-09-[address] [facility] Test 00:00:00 malignant neoplasm of Medica l Center cervix (procedure) [code = 321854266] Future Scheduled [address] [facility] Test 00:00:00 (procedure) [code = [facility] 12677805] Future Scheduled 1998-09-16 DTAP/TDAP/TD VACCINES [facility] Test 00:00:00 (1 - Tdap) [code = Medical C enter DTAP/TDAP/TD VACCINES (1 - Tdap)] Future Scheduled 1997-09-16 HEPATITIS C SCREENING [facility] Test 00:00:00 [code = HEPATITIS C Medical Center SCREENING] Future Scheduled 1985-09-[address] [facility] Test 00:00:00 0-64 YRS (1 - PCV) Medical C enter [code = PNEUMOCOCCAL VACCINE 0-64 YRS (1 - PCV)] Future Scheduled 1980-03-19 COVID-19 VACCINE (#1) [facility] Test 00:00:00 [code = COVID-[address] VACCINE (#1)] Encounters Start End Encounter Admission Attending Care Care Encounter Source Date/Time Date/Time Type Type Clinicians Facility Department ID 2020-01-25 Inpatient ER [facility] [id number] [facility] 03:34:00 [place] 2020-09-06 2020-09-07 Emergency [facility] [id number] 32 [place] 00:00:00 00:00:[address] EMY [address] 2020-05-12 2020-05-12 Outpatient GCCOVIDV GCCOVIDV [id number] GCCOVID 00:00:00 00:00:00 V 2019-12-02 2019-12-02 [facility] [id number] 17:04:00 18:50:00 Enriqueta Mckeon [id number] [place] [address] [place] [address] [id number] [facility] 2019-12-02 2019-12-02 [facility] [id number] Univers 17:04:00 18:50:00 Enriqueta Mckeon [id number] i ty [facility] 4.2.7.2.[address] [place] [id number] 2019-12-02 2019-12-02 Emergency [facility] [id number] [facility] 16:57:00 16:57:00 ENRIQUETA lomas [facility] 2019-12-02 2019-12-02 Orders Doctor ANISHA [id number] 00:00:00 00:00:00 Only Unassigned, SERGIO 350.1.13.10 [place] [facility] 4.2.7.2.686 [id number] 2019-12-02 2019-12-02 Orders Doctor ANISHA [id number] [facility] 00:00:00 00:00:00 Only Unassigned, SERGIO [id number] ity of [place] [facility] 4.2.7.2.686 [place] [phone] [address] 2015-04-21 2015-04-28 Emergency BOYAREDDIGA [facility] 064 [id number] [place] 00:00:00 00:00:00 [place], [address] Results Test Description Test Time Test Comments Results Result [facility] e Comments TISSUE EXAM 2020-01-07 Surgical Pathology 8 Report Case: [id number] 17:08:00 Authorizing Provider: Phani Carlos MD Collected: 01/26/2020 01:41 PM Ordering Location: [address] Received: 01/26/2020 02:45 PM Service Pathologist: Apollo Marcum MD Specimen: Disc L4-5, LEFT L4-L5 DISC VERTEBRAL COLUMN, INTERVERTEBRAL DISC, DISCECTOMY:FRAGMENTS OF FIBROCARTILAGE WITH MILD DEGENERATIVE CHANGES Signing Pathologist Direct Phone Line: [phone] ally signed by Apollo Marcum MD on 02/02/2020 at 5:08 [id number]; [id number] disc herniationDisc L4-5A. Received fresh, labeled with the patient's name, MRN and "disc L4-5" is a 2.5 x 2 x 0.4 cm aggregate of multiple pink-white fibrocartilagenous tissue fragments. The specimen is entirely submitted in A1, following light decalcification.KAYE Logan PA (ASCP)cmPerformed NEEDLE EMG, 2 2020-01-07 IOM EXTREMITY 8 09:41:00 [facility] 1980 Sex: F INTRA OPERATIVE MONITORING REPORT Patient Name: Flakito Blackman [facility] Surgery Date: 01/26/2020 [place] Pro: [id number] Monitoring began at 11:48am and ended at 1:35 pm Surgeon: Breanna Szymanski Examining Neurologist: Linus Ricci Monitoring Technologists: Aleah Skinner Procedure: L4- L5 microdiscectomy Free-running and triggered EMG of left and right Vastus Lateralis (L2-4), Vastus Medialis, Tibialis Anterior (L4-5), Lateral Gastrocnemius (L5-S2) and Abductor Hallucis (S1-2) referenced to Abductor Digiti Minimi (S2-3) muscle groups. Description: Intraoperative neurophysiological monitoring was performed using a combination of free-running and triggered EMG of L2-S2 innervated muscle groups. A real-time connection with the examining neurologist was established and maintained throughout the operative procedure by the monitoring technologist. Free-running EMG of L2-S2 innervated muscle group was monitored continuously throughout the operative procedure with no sustained neurotonic discharges seen. Triggered EMG was performed following the placement of cortical screws via a sterile Prass probe held by the surgeon. The resulting intensity values required to elicit a response from each placement were reported to the surgeon. The resulting intensity values required to elicit a response from each placement were greater than Alert criteria. Conclusion: The absence of sustained neurotonic discharges on free-running EMG suggests that the nerve roots monitored remained undisturbed. All values elicited by triggered EMG during pedicle screw placement were reported to the surgeon. Babatunde Garcia M.D., FACNS , FLUORO, 2020-01-07 Reason for NON-SPECIFIC, UP 1 exam:->MIS L4-5 TO 1 HOUR 12:23:00 [facility]CT[facility]Y [facility] : 1980 Sex: F FINAL REPORT FL, FLUORO, NON-SPECIFIC, UP TO 1 HOUR CLINICAL INDICATION: MIS L4-5 MICRODISCECTOMY COMPARISON: None IMPRESSION: A single lateral view of the lumbar spine is obtained intraoperatively. The indicator probe is at the L4-5. Results were communicated to Dr. Carlos, who concurred with the above findings. Signed: JR Francis Robert MDReport Verified Date/Time: 01/26/2020 12:23:23 Reading Location: [facility] Radiology Reading Room /APTT 2020-01-26 08:43:00 Test Item Value Reference Range Interpretation Comme nts PROTIME (BEAKER) (test code = 759) 13.6 seconds 11.9-14.2 INR (BEAKER) (test code = 370) 1.07 <=5.90 PARTIAL THROMBOPLASTIN TIME (BEAKER) (test code = 760) 27.0 seconds 22.5-36.0 Effective 07/03/2018: PT Reference Range ChangeNew: 11.9-14.2 Previous: 11.7- 14.7RECOMMENDED COUMADIN/WARFARIN INR THERAPY RANGESSTANDARD DOSE: 2.0-3.0 Includes: PROPHYLAXIS for venous thrombosis, systemic embolization; TREATMENT for venous thrombosis and/or pulmonary embolus.HIGH RISK: Target INR is 2.5-3.5 for patients wiht mechanical heart valves.BASIC METABOLIC [id number] 04:50:00 Test Item Value Reference Range Interpretation Comments SODIUM (BEAKER) 135 meq/L 136-145 L (test code = 381) POTASSIUM (BEAKER) 4.6 meq/L 3.5-5.1 Specimen slightly (test code = 379) hemolyzed CHLORIDE (BEAKER) 109 meq/L 98-107 H (test code = 382) CO2 (BEAKER) (test 17 meq/L 22-29 L code = 355) BLOOD UREA NITROGEN 17 mg/dL 7-21 (BEAKER) (test code = 354) CREATININE (BEAKER) 0.77 mg/dL 0.57-1.25 Specimen slightly (test code = 358) hemolyzed GLUCOSE RANDOM 182 mg/dL 70-105 H (BEAKER) (test code = 652) CALCIUM (BEAKER) 8.3 mg/dL 8.4-10.2 L (test code = 697) EGFR (BEAKER) (test 83 mL/min/1.73 ESTIMA JOURDAN GFR IS code = 1092) sq m NOT ACCURATE CREATININE CLEARANCE IN PREDICTING GLOMERULAR FILTRATION RATE . ESTIMATED GFR I S NOT APPLICABLE FOR DIALYSIS PATIEN TS. Flavorings Compounder ID - RENY MCBC W/PLT COUNT & AUTO [id number] 04:41:00 Test Item Value Reference Range Interpretation Comments WHITE BLOOD CELL COUNT (BEAKER) 8.4 K/ L 3.5-10.5 (test code = 775) RED BLOOD CELL COUNT (BEAKER) 3.38 M/ L 3.93-5.22 L (test code = 761) HEMOGLOBIN (BEAKER) (test code = 12.3 GM/DL 11.2-15.7 410) HEMATOCRIT (BEAKER) (test code = 36.7 % 34.1-44.9 411) MEAN CORPUSCULAR VOLUME (BEAKER) 108.6 fL 79.4-94.8 H (test code = 753) MEAN CORPUSCULAR HEMOGLOBIN 36.4 pg 25.6-32.2 H (BEAKER) (test code = 751) MEAN CORPUSCULAR HEMOGLOBIN CONC 33.5 GM/DL 32.2-35.5 (BEAKER) (test code = 752) RED CELL DISTRIBUTION WIDTH 13.0 % 11.7-14.4 (BEAKER) (test code = 412) PLATELET COUNT (BEAKER) (test 213 K/CU MM 150-450 code = 756) MEAN PLATELET VOLUME (BEAKER) 10.0 fL 9.4-12.3 (test code = 754) NUCLEATED RED BLOOD CELLS 0 /100 WBC 0-0 (BEAKER) (test code = 413) NEUTROPHILS RELATIVE PERCENT 81 % (BEAKER) (test code = 429) LYMPHOCYTES RELATIVE PERCENT 17 % (BEAKER) (test code = 430) MONOCYTES RELATIVE PERCENT 2 % (BEAKER) (test code = 431) EOSINOPHILS RELATIVE PERCENT 0 % (BEAKER) (test code = 432) BASOPHILS RELATIVE PERCENT 0 % (BEAKER) (test code = 437) NEUTROPHILS ABSOLUTE COUNT 6.79 K/ L 1.56-6.13 H (BEAKER) (test code = 670) LYMPHOCYTES ABSOLUTE COUNT 1.42 K/ L 1.18-3.74 (BEAKER) (test code = 414) MONOCYTES ABSOLUTE COUNT (BEAKER) 0.17 K/ L 0.24-0.36 L (test code = 415) EOSINOPHILS ABSOLUTE COUNT 0.00 K/ L 0.04-0.36 L (BEAKER) (test code = 416) BASOPHILS ABSOLUTE COUNT (BEAKER) 0.01 K/ L 0.01-0.08 (test code = 417) IMMATURE GRANULOCYTES-RELATIVE 0 % 0-1 PERCENT (BEAKER) (test code = 2801) SARS-COV2/RT-PCR ([facility])2020-01-25 23:13:00 Test Item Value Reference Range Interpretation Comments SARS-COV2/RT-PCR (test code Negative Not Detected, Negative, = [id number]) See external report for linked test SARS-COV-[address] [facility] (test code = 4307669) Negative results do not preclude SARS-CoV-2 infection and should not be used as the sole basis for patient management decisions. Negative results must be combined with clinical observations, patient history, and epidemiological information. A false negative result may occur if a specimen is improperly collected, transported or handled.The limit of detection for this assay is 250 copies/mL.This SARS CoV-2 test is a rapid, real-time RT-PCR test intended for the qualitative detection of nucleic acid from SARS-CoV-2 in a nasopharyngeal swab specimen collected from individuals suspected of COVID-19 by their healthcare provider.This test has not been Food and Drug Administration (FDA) cleared or approved and has been authorized by FDA under an Emergency Use Authorization (EUA). This EUA will be effective until the declaration that circumstances exist justifying the authorization of the emergency use of in vitro diagnostic tests for detection and/or diagnosis of COVID-19 is terminated under Section 564(b)(2) of the Act or the EUA is revoked under Section 564(g) of the Act.Fact Sheet for Healthcare Pro viders:https://www.[employer]/Documents/Xpert%20Xpress%20SARS%20CoV-2/Fact%20Sh eets/302-3802%92TEIW-QNL-8%20HEALTHCARE%20PROVIDERS%20FACT%20SHEET.pdfFact Sheet for Healthcare Patients:https://www.Online Pr[employer]/Documents/Xpert%20Xpress%20SARS%20CoV-2/Fact%20Sheets/3023801%20SARS-COV -2%20PATIENT%20FACT%20SHEET.pdfPerforming Laboratory:[facility], [place] [address]EPROUAJBC SCREEN, [id number] 18:53:00 Test Item Value Reference Range Interpretation Comments TEST URINE (BEAKER) (test Negative code = 583) RAD, SPINE, LUMBAR, COMPLETE, W/ [id number] 14:06:00Reason for exam:->L4-[address] [facility]O [facility] : 1980 Sex: FFINALREPORT LUMBAR SPINE 7 VIEWS HISTORY: L5 pars defect COMPARISON: MRI lumbar spine from 01/25/2020 FINDINGS: AP, lateral, spot lumbosacral, bilateral oblique, flexion lateral, and extension lateral radiographs of the lumbar spine were obtained. There is bilateral L5 spondylolysis with grade 1 L5 spondylolisthesis. The degree of spondylolisthesis does not change appreciably from neutral to flexion to extension. There is moderate disc space narrowing and mild endplate osteophyte formation at L4-L5. No other disc space narrowing is visualized. There are minimal anterior endplate osteophytes at L3-L4. No lumbar compression fracture is visualized. No abnormal lumbar spine motion is ap preciated. There are several calcific densities in the left kidney suggestive of renal calculi, the largest of which measures 3 mm in size in the lower pole. Signed: Camron Choudhury MDReport Verified Date/Time: 01/25/2020 14:06:31 Reading Location: [address] Transitional Reading Room MR, SPINE, LUMBAR, WITHOUT [id number] 12:20:00Unlisted Reason for Exam - Click Yes and Enter Reason Below->No [facility] FLAKITO BLACKMAN : 1980 Sex: FFINALREPORT MR, SPINE, LUMBAR, WITHOUT CONTRAST INDICATION: Back pain or radiculopathy, < 6 wks, uncomplicated TECHNIQUE: Multiplanar, multisequence MRI of the lumbar spine without intravenous contrast. COMPARISON: None FINDINGS:Nomenclature: L5-S1 is series 701 image 7. Alignment: Focal kyphosis at T11-12. Minimal anterolisthesis of L5 on S1. Vertebral bodies: Vertebral body heights are maintained. No marrow edema. No aggressive osseous lesions. Spinal canal: At L4-5, a large left paracentral and foraminal disc extrusion with a possible free fragment which is superiorly displaced. The disc material displaces the left L5 nerve root, and causes severe stenosis of the left subarticular recess and neural foramen. There is also mild canal stenosis and mild right foraminal stenosis.At L5-S1, anterolisthesis with unroofing of the disc causes moderate bilateral foraminal stenosis. No high-grade canal or foraminal stenosis elsewhere. Cord: Conus is of normal caliber and signal, and t erminates at L1-2. Nerve roots of the cauda equina are of normal caliber and distribution. No abnormal intrathecal enhancement. Soft tissues: Paraspinal soft tissues are unremarkable. IMPRESSION:At L4-5, a large left paracentral and foraminal disc extrusion with a possible free fragment which is superiorly displaced. The disc material displaces the left L5 nerve root, and causes severe stenosis of the left subarticular recess and left neural foramen. Signed: Vanessa Juarez MDReport Verified Date/Time: 01/25/2020 12:20:12 BASIC METABOLIC [id number] 06:42:00 Test Item Value Reference Range Interpretation Comments SODIUM (BEAKER) 137 meq/L 136-145 (test code = 381) POTASSIUM (BEAKER) 3.3 meq/L 3.5-5.1 L (test code = 379) CHLORIDE (BEAKER) 108 meq/L 98-107 H (test code = 382) CO2 (BEAKER) (test 20 meq/L 22-29 L code = 355) BLOOD UREA NITROGEN 12 mg/dL 7-21 (BEAKER) (test code = 354) CREATININE (BEAKER) 0.79 mg/dL 0.57-1.25 (test code = 358) GLUCOSE RANDOM 107 mg/dL 70-105 H (BEAKER) (test code = 652) CALCIUM (BEAKER) 7.7 mg/dL 8.4-10.2 L (test code = 697) EGFR (BEAKER) (test 81 mL/min/1.73 ESTIMA JOURDAN GFR IS code = 1092) sq m NOT ACCURATE CREATININE CLEARANCE IN PREDICTING GLOMERULAR FILTRATION RATE . ESTIMATED GFR I S NOT APPLICABLE FOR DIALYSIS PATIEN TS. Flavorings Compounder ID - PIAYA LHEMOGLOBIN AND [id number] 05:53:00 Test Item Value Reference Range Interpretation Comments HEMOGLOBIN (BEAKER) (test code = 11.8 GM/DL 11.2-15.7 410) HEMATOCRIT (BEAKER) (test code = 34.9 % 34.1-44.9 411) Flavorings Compounder ID - [id number]
[2022-04-05] MEDS ORDERED: ASPIRIN 325 MG TAB ONE (04:10)
[2022-04-05] MEDS ORDERED: NITROGLYCERIN 0.4 MG/TAB SL ONE (04:10)
[2022-04-05] MEDS ORDERED: ONDANSETRON 4 MG/2 ML VIAL ONE (04:22)
[2022-04-05 04:34] LABS: Absolute Lymphocytes (CBC) 5.9 K/uL (0.7-4.9); Lymphocytes % 47.9 % (15.3-44.8); MCV 105.3 fL (80-100); MPV 7.5 fL (7.6-11.3)
[2022-04-05] MEDS ORDERED: MORPHINE 4 MG/ML SYR ONE (04:34)
[2022-04-05 04:59] LABS: Albumin 3.9 g/dL (3.4-5.0); Bilirubin Total 0.2 mg/dL (0.2-1.0); Potassium 4.1 mmol/L (3.5-5.1); Protein, Total 7.7 g/dL (6.4-8.2); Troponin High Sensitivity 3.2 pg/mL (<58.9)
--- NOTE | 2022-04-05 05:19 | EDPHYS ---
Physician Documentation [facility] Name: Namita Blackman Age: 41 yrs Sex: Female : 1980 Arrival Date: 04/05/2022 Time: 03:51 Bed 2 Private MD: ED Physician Scott Fenton HPI: 04/05 05:19 This 41 yrs old Female presents to ER via Ambulatory with complaints of Chest pain. rt 05:19 The patient or guardian reports chest pain that is located primarily in the substernal rt area. Onset: acutely, 3 hour(s) ago. The pain does not radiate. Associated signs and symptoms: Pertinent positives: diaphoresis, nausea, shortness of breath. The chest pain is described as a pressure. Modifying factors: The symptoms are alleviated by nothing. the symptoms are aggravated by nothing. Historical: - Allergies: 03:57 No Known Allergies; kd3 - Home Meds: 03:57 None [Active]; kd3 - Immunization history:: Adult Immunizations up to date. - Social history:: Smoking status: unknown. - Family history:: not pertinent. ROS: 05:19 Constitutional: Negative for fever, chills, and weight loss, MS/Extremity: Negative for rt injury and deformity, Skin: Negative for injury, rash, and discoloration, Psych: Negative for depression, anxiety, suicide ideation, homicidal ideation, and hallucinations. 05:19 Cardiovascular: Positive for chest pain, Negative for edema. 05:19 Respiratory: Positive for shortness of breath. 05:19 Abdomen/GI: Positive for nausea. Exam: 05:19 Constitutional: This is a well developed, well nourished patient who is awake, alert, rt and in no acute distress. Head/Face: Normocephalic, atraumatic. Chest/axilla: Normal chest wall appearance and motion. Nontender with no deformity. No lesions are appreciated. Cardiovascular: Regular rate and rhythm with a normal S1 and S2. No gallops, murmurs, or rubs. Normal PMI, no JVD. No pulse deficits. Respiratory: Lungs have equal breath sounds bilaterally, clear to auscultation and percussion. No rales, rhonchi or wheezes noted. No increased work of breathing, no retractions or nasal flaring. Abdomen/GI: Soft, non-tender, with normal bowel sounds. No distension or tympany. No guarding or rebound. No evidence of tenderness throughout. Skin: Warm, dry with normal turgor. Normal color with no rashes, no lesions, and no evidence of cellulitis. MS/ Extremity: Pulses equal, no cyanosis. Neurovascular intact. Full, normal range of motion. Neuro: Awake and alert, GCS 15, oriented to person, place, time, and situation. Cranial nerves II-XII grossly intact. Motor strength 5/5 in all extremities. Sensory grossly intact. Cerebellar exam normal. Normal gait. Psych: Awake, alert, with orientation to person, place and time. Behavior, mood, and affect are within normal limits. 05:19 Constitutional: The patient appears in obvious distress, moderately distressed. 05:19 ECG was reviewed by the Attending Physician. 05:19 ECG was reviewed by the Attending Physician. Vital Signs: 04:16 BP 140 / 103; Pulse 71; Resp 25 S; Pulse Ox 99% on R/A; as6 04:47 BP 96 / 56; Pulse 52; Resp 13 S; Pulse Ox 100% on R/A; as6 06:56 BP 105 / 64; Pulse 54; Resp 18 S; Pulse Ox 96% on R/A; as6 MDM: 03:56 Patient medically screened. rt 05:19 Differential diagnosis: abnormal EKG, acute myocardial infarction, acute pericarditis, rt pneumonia, pneumothorax, pulmonary embolus, thoracic aortic disection. HEART Score: History: Highly Suspicious (2), ECG: Normal (0), Age: < or = 45 years (0), Risk Factors: > or = 3 Risk factors for atherosclerotic disease (2), Troponin: < or = 1 x Normal Limit (0), Total Score = 4. The patient was given aspirin in the Emergency Department. Data reviewed: vital signs, nurses notes, lab test result(s), EKG, radiologic studies. Consideration of Admission/Observation Patient was admitted/placed on observation. Management of patient was discussed with the following: Hospitalist: Agrees to admit. I considered the following discharge prescriptions or medication management in the emergency department Medications were administered in the Emergency Department. See MAR. Test considered but Not performed: CT: Low suspicion for PE, TAD, CT scans not indicated. Care significantly affected by the following chronic conditions: Hypertension. Care significantly affected by the following Social Determinants of Health: Tobacco use. Counseling: I had a detailed discussion with the patient and/or guardian regarding: the historical points, exam findings, and any diagnostic results supporting the discharge/admit diagnosis, lab results, radiology results, the need for further work-up and treatment in the hospital. Response to treatment: the patient's symptoms have markedly improved after treatment. 04/05 04:01 Order name: CBC with Diff rt 04/05 04:01 Order name: CMP rt 04/05 04:01 Order name: Troponin High Sensitivity rt 04/05 04:01 Order name: Lipase rt 04/05 04:01 Order name: EKG; Complete Time: 04:14 rt 04/05 04:01 Order name: EKG - Nurse/Tech; Complete Time: 04:13 rt 04/05 04:01 Order name: Chest Single View XRAY rt 04/05 04:01 Order name: Test, Serum rt 04/05 04:59 Order name: Comprehensive Metabolic Panel; Complete Time: 05:06 EDMS 04/05 04:59 Order name: Troponin High Sensitivity; Complete Time: 05:06 EDMS 04/05 04:59 Order name: Lipase; Complete Time: 05:06 EDMS 04/05 05:02 Order name: Test Serum, Qualitat; Complete Time: 05:06 EDMS 04/05 05:12 Order name: CBC with Automated Diff EDMS 04/05 05:36 Order name: SARS RAPID kd3 04/05 07:22 Order name: SARS-COV-2 Antigen Rapid EDMS 04/05 08:57 Order name: D-Dimer EDMS 04/05 09:17 Order name: Troponin High Sensitivity EDMS 04/05 09:17 Order name: Lipid Profile EDMS 04/05 13:13 Order name: Troponin High Sensitivity EDMS EC:19 Rate is 93 beats/min. Rhythm is regular, Normal Sinus Rhythm with No ectopy. QRS Salol rt is Normal. [place] interval is normal. QRS interval is normal. QT interval is normal. No Q waves. T waves are Normal. No ST changes noted. Interpreted by me. 05:19 Rate is 69 beats/min. Rhythm is regular, Normal Sinus Rhythm with No ectopy. QRS Salol rt is Normal. [place] interval is normal. QRS interval is normal. QT interval is normal. No Q waves. T waves are Normal. No ST changes noted. Interpreted by me. Administered Medications: 04:00 Drug: Aspirin 325 mg Route: PO; as6 12:23 Follow up: Response: No adverse reaction bp 04:05 Drug: Nitroglycerin 0.4 mg Route: Sublingual; as6 04:15 Drug: Nitroglycerin 0.4 mg Route: Sublingual; as6 04:21 Drug: Nitroglycerin 0.4 mg Route: Sublingual; as6 12:23 Follow up: Response: Pain is decreased bp 04:21 Drug: Zofran (Ondansetron) 4 mg Route: IVP; Site: right antecubital; as6 12:23 Follow up: Response: No adverse reaction bp 04:34 Drug: morphine 4 mg Route: IVP; Infused Over: 4 mins; Site: right antecubital; as6 12:22 Follow up: Response: No adverse reaction bp 05:45 Drug: ProTONIX (pantoprazole) 40 mg Route: IVP; Site: right antecubital; as6 12:22 Follow up: Response: No adverse reaction bp Disposition Summary: 04/05/22 05:18 Hospitalization Ordered Hospitalization Status: Observation rt Provider: Niels Toure rt Condition: Stable rt Problem: new rt Symptoms: have improved rt Bed/Room Type: Standard rt Location: Telemetry/MedSurg (observation)(04/05/22 10:50) em1 Room Assignment: 210(04/05/22 10:50) em1 Diagnosis - Chest pain, unspecified rt Forms: - Medication Reconciliation Form rt - SBAR form rt Signatures: Dispatcher [employer] EDJorge George em1 Trevor Baeza, STATION WORKER-C STATION WORKER-Cla1 Kimmy Pires, RN RN cg Je Beyer RN RN as6 Mai Gatica RN RN [id number] Scott Fenton MD MD rt Alec Lund RN bp Corrections: (The following items were deleted from the chart) 06:19 05:18 Telemetry/MedSurg (observation) rt cg 06:19 05:18 rt cg 10:50 06:19 [facility] ER HOLD cg em1 10:50 06:19 ERHOLD- cg em1
--- NOTE | 2022-04-05 05:19 | ER ---
Nurse's Notes [facility] Name: Namita Blackman Age: 41 yrs Sex: Female : 1980 Arrival Date: 04/05/2022 Time: 03:51 Bed 2 Private MD: Diagnosis: Chest pain, unspecified Presentation: 04/05 03:55 Chief complaint: Patient states: My chest hurts in the middle of my chest and radiates kd3 to the right arm. it started at about 3 this morning. No previous history of NY but her father had an NY at a young age. Coronavirus screen: Vaccine status: Patient reports being unvaccinated. Ebola Screen: No symptoms or risks identified at this time. Initial Sepsis Screen: Does the patient meet any 2 criteria? No. Patient's initial sepsis screen is negative. Does the patient have a suspected source of infection? No. Patient's initial sepsis screen is negative. Risk Assessment: Do you want to hurt yourself or someone else? Patient reports no desire to harm self or others. Onset of symptoms was April 05, 2022. 03:55 Method Of Arrival: Ambulatory kd3 03:55 Acuity: SAWYER 2 as6 Triage Assessment: 03:57 General: Appears uncomfortable, Behavior is anxious. Pain: Complains of pain in xiphoid kd3 area and mid-sternal area Pain radiates to right arm. Historical: - Allergies: 03:57 No Known Allergies; kd3 - Home Meds: 03:57 None [Active]; kd3 - Immunization history:: Adult Immunizations up to date. - Social history:: Smoking status: unknown. - Family history:: not pertinent. Screenin:27 [facility] ED Fall Risk Assessment (Adult) Score/Fall Risk Level 0 - 2 = Low Risk. Abuse as6 screen: Denies threats or abuse. Denies injuries from another. Nutritional screening: No deficits noted. Tuberculosis screening: No symptoms or risk factors identified. Assessment: 04:00 General: Appears distressed, uncomfortable, Behavior is crying, restless, as6 uncooperative. Pain: Complains of pain in chest and mid-sternal area and xiphoid area Pain radiates to right arm. Neuro: Level of Consciousness is awake, alert, obeys commands, Oriented to person, place, time, situation. Cardiovascular: Denies chest pain, shortness of breath. 05:00 Reassessment: Patient and/or family updated on plan of care and expected duration. Pain ha1 level reassessed. Patient is alert, oriented x 3, equal unlabored respirations, skin warm/dry/pink. Patient states feeling better. Patient states symptoms have improved. 06:56 General: Appears in no apparent distress. Behavior is calm, cooperative. as6 Vital Signs: 04:16 BP 140 / 103; Pulse 71; Resp 25 S; Pulse Ox 99% on R/A; as6 04:47 BP 96 / 56; Pulse 52; Resp 13 S; Pulse Ox 100% on R/A; as6 06:56 BP 105 / 64; Pulse 54; Resp 18 S; Pulse Ox 96% on R/A; as6 ED Course: 03:51 Patient arrived in ED. kd3 03:55 Scott Fenton MD is Attending Physician. rt 03:57 Triage completed. kd3 03:57 Arm band placed on right wrist. kd3 03:59 Je Beyer, CHRIS is Primary Nurse. as6 03:59 Inserted saline lock: 18 gauge in right antecubital area, using aseptic technique. as6 Blood collected. 04:27 Placed in gown. Bed in low position. Call light in reach. Side rails up X2. as6 05:18 Niels Toure MD is Hospitalizing Provider. rt 07:33 Primary Nurse role handed off by Je Beyer, RN kb3 09:50 Alec Lund, CHRIS is Primary Nurse. bp 12:21 No provider procedures requiring assistance completed. Patient admitted, IV remains in bp place. Administered Medications: 04:00 Drug: Aspirin 325 mg Route: PO; as6 12:23 Follow up: Response: No adverse reaction bp 04:05 Drug: Nitroglycerin 0.4 mg Route: Sublingual; as6 04:15 Drug: Nitroglycerin 0.4 mg Route: Sublingual; as6 04:21 Drug: Nitroglycerin 0.4 mg Route: Sublingual; as6 12:23 Follow up: Response: Pain is decreased bp 04:21 Drug: Zofran (Ondansetron) 4 mg Route: IVP; Site: right antecubital; as6 12:23 Follow up: Response: No adverse reaction bp 04:34 Drug: morphine 4 mg Route: IVP; Infused Over: 4 mins; Site: right antecubital; as6 12:22 Follow up: Response: No adverse reaction bp 05:45 Drug: ProTONIX (pantoprazole) 40 mg Route: IVP; Site: right antecubital; as6 12:22 Follow up: Response: No adverse reaction bp Medication: 06:56 VIS not applicable for this client. as6 Outcome: 05:18 Decision to Hospitalize by Provider. rt 07:30 Patient left the ED. hb 12:21 Admitted to Med/surg accompanied by tech, via wheelchair, room 210, with chart, Report bp called to ANDERSON PEREZ 12:21 Condition: stable 12:21 Instructed on the need for admit. 13:38 Patient left the ED. bd Signatures: Kristal Hobbs Heather, RN RN Alec Lund, RN RN bp Je Beyer, RN RN as6 Mai Gatica, RN RN kd3 Nina Eric, RN RN haVianca Michel RN RN [email or web address] Scott Fenton MD MD rt Corrections: (The following items were deleted from the chart) 04:16 03:55 Acuity: SAWYER 3 kd3 as6
--- NOTE | 2022-04-05 05:36 | P.HP ---
Certification for Inpatient Patient admitted to: Observation With expected LOS: <2 Midnights Patient will require the following post-hospital care: None Practitioner: I am a practitioner with admitting privileges, knowledge of patient current condition, hospital course, and medical plan of care. Services: Services provided to patient in accordance with Admission requirements found in Title 42 Section 412.3 of the Code of Federal Regulations <Trevor Baezaur - Last Filed: 04/05/22 05:32> Patient History Date of Service: 04/05/22 Reason for admission: Chest pain History of Present Illness: 41-year-old healthy female found 3 AM to walk to the bathroom, upon returning to bed and lying down she experienced onset of sharp chest pain which was intense and associated with some shortness of breath. She took a few Tums as she felt as if this could possibly be related to GERD but her pain was unrelieved than previous, for that reason she came to the emergency department for evaluation. Her EKG was without ST elevations, initial troponin 3.2. ED provider wishes to admit under observation. - Past Medical/Surgical History -: none -: Appendectomy Psychosocial/ Personal History: Pt works in [email or web address], lives at home with family. - Family History Father -: Heart disease - Social History Smoking Status: Current every day smoker Counseled patient to stop smoking for: less than 10 minutes Smoking therapy provided: No (Pt declies) Place of Residence: Home <Trevor Baezaur - Last Filed: 04/05/22 05:32> Date of Service: 04/05/22 <Niels Toure - Last Filed: 04/05/22 16:00> Review of Systems 10-point ROS is otherwise unremarkable Cardiovascular: Chest Pain <Trevor Baeza Oswaldo - Last Filed: 04/05/22 05:32> Physical Examination - Physical Exam General: Alert, In no apparent distress, Oriented x3 HEENT: Atraumatic, PERRLA, Mucous membr. moist/pink, EOMI, Sclerae nonicteric Neck: Supple, 2+ carotid pulse no bruit, No LAD, Without JVD or thyroid abnormality Respiratory: Clear to auscultation bilaterally, Normal air movement Cardiovascular: Regular rate/rhythm, Normal S1 S2 Gastrointestinal: Normal bowel sounds, Tenderness (Mild epigastric tenderness) Musculoskeletal: No tenderness Integumentary: No rashes Neurological: Normal speech, Normal strength at 5/5 x4 extr, Normal tone, Normal affect - Studies Laboratory Data (last 24 hrs) 04/05/22 04:11: Sodium 137, Potassium 4.1, BUN 16, Creatinine 1.01, Glucose 135 H, Total Bilirubin 0.2, AST 55 H, ALT 43, Alkaline Phosphatase 61, Lipase 22 04/05/22 04:11: WBC 12.30 H, Hgb 13.9, Hct 41.0, Plt Count 303 <Trevor Baeza - Last Filed: 04/05/22 05:32> - Studies Laboratory Data (last 24 hrs) 04/05/22 04:11: Sodium 137, Potassium 4.1, BUN 16, Creatinine 1.01, Glucose 135 H, Total Bilirubin 0.2, AST 55 H, ALT 43, Alkaline Phosphatase 61, Lipase 22 04/05/22 04:11: WBC 12.30 H, Hgb 13.9, Hct 41.0, Plt Count 303 <Niels Toure - Last Filed: 04/05/22 16:00> Assessment and Plan - Plan Assessment: Chest pain rule out ACS Tobacco abuse Plan: Chest pain rule out ACS Trend troponins, monitor on telemetry, lipid panel with next set of enzymes. Cardiology consult in place continue aspirin, statin. We will also treat for possible GERD with Protonix. Obtain DDimer Tobacco abuse Smokes 1/2 PPD, counseled on need for cessation. Offered nicoderm patch, pt declined. DVT PPX: Lovenox Code status:full Discharge Plan: Home Plan to discharge in: 24 Hours - Advance Directives Does patient have a Living Will: No Does patient have a Durable POA for Healthcare: No - Code Status/Comfort Care Code Status Assessed: Yes (Full code) Critical Care: No Time Spent Managing Pts Care (In Minutes): 70 <Trevor Baeza - Last Filed: 04/05/22 05:32> Physician Review: Patient Assessed, Agree with Above Assessment and Plan <Niels Toure - Last Filed: 04/05/22 16:00>
[2022-04-05] MEDS ORDERED: PANTOPRAZOLE 40 MG INJ ONE (05:38)
[2022-04-05] MEDS ORDERED: MORPHINE 2 MG/ML SYR IV PRN (06:55)
[2022-04-05] MEDS ORDERED: SODIUM CHLORIDE 0.9% 10ML INJ IV PRN (06:55)
[2022-04-05] MEDS ORDERED: ONDANSETRON 4 MG/2 ML VIAL IV PRN (06:55)
[2022-04-05 07:21] LABS: SARS-CoV-2 Antigen Rapid Res Negative (Negative)
[2022-04-05 08:19] VITALS: O2SAT 96
[2022-04-05] MEDS ORDERED: ENOXAPARIN 40 MG/0.4 ML SQ SCH (09:00)
[2022-04-05] MEDS ORDERED: ASPIRIN EC 81 MG TAB PO SCH (09:00)
[2022-04-05 09:17] LABS: Troponin High Sensitivity 3.6 pg/mL (<58.9)
[2022-04-05 10:00] VITALS: BMI 25.2
[2022-04-05] MEDS ORDERED: ASPIRIN EC 81 MG TAB PO ONE (10:38)
[2022-04-05] MEDS ORDERED: ENOXAPARIN 40 MG/0.4 ML SQ ONE (10:39)
[2022-04-05] MEDS ORDERED: INFLUENZA VACCINE (for 6+ mo) 0.5 ML DOSE IMVAC ONE (11:00)
--- NOTE | 2022-04-05 11:14 | EKG ---
Test Date: 2022-04-05 Test Time: 04:08:11 Marine Welder: MEASUREMENT RESULTS: Intervals: Rate: 69 MA: 116 QRSD: 92 QT: 420 QTc: 450 [place]: P: 33 MA: 116 QRS: 71 T: 74 INTERPRETIVE STATEMENTS: Normal sinus rhythm Normal ECG No previous ECG available for comparison Electronically Signed On 04-05-22 11:13:31 FARM CONSULTANT by Kevin Brooks
--- NOTE | 2022-04-05 14:29 | RAD REPORT ---
EXAM DESCRIPTION: RAD - Chest Single View - 04/05/2022 4:25 am CLINICAL HISTORY: 41 years Female CHEST PAIN COMPARISON: None FINDINGS: Lung volumes adequate. Cardiac silhouette is normal. No pneumothorax. No large pleural effusion. No focal consolidation. No acute bony finding. IMPRESSION: No acute cardiopulmonary findings. Electronically signed by: Misbah Archer MD 04/05/2022 4:39 AM SANDWICH ARTIST Due to temporary technical issues with the PACS/Fluency reporting system, reports are being signed by the in house radiologists without review as a courtesy to insure prompt reporting. The interpreting radiologist is fully responsible for the content of the report.
[2022-04-05 16:29] VITALS: BP 104/64; TEMP 97.3
--- NOTE | 2022-04-05 17:29 | EKG ---
Test Date: 2022-04-05 Test Time: 03:53:25 Audio Engineer: CLARITA MEASUREMENT RESULTS: Intervals: Rate: 93 OK: 134 QRSD: 86 QT: 386 QTc: 479 [place]: P: 78 OK: 134 QRS: 80 T: 69 INTERPRETIVE STATEMENTS: Normal sinus rhythm Normal ECG No previous ECG available for comparison Electronically Signed On 04-05-22 17:28:33 EASEMENT WORKER by Kevin Brooks
--- NOTE | 2022-04-05 18:09 | P.DS ---
Admission Date: 04/05/22 Discharge Date: 04/05/22 Disposition: ROUTINE DISCHARGE Discharge Condition: GOOD Reason for Admission: Chest pain Consultations: Cardiology Dr. Brooks Procedures: CXR 04/05/22 FINDINGS: Lung volumes adequate. Cardiac silhouette is normal. No pneumothorax. No large pleural effusion. No focal consolidation. No acute bony finding. IMPRESSION: No acute cardiopulmonary findings. Brief History of Present Illness: 41-year-old healthy female found 3 AM to walk to the bathroom, upon returning to bed and lying down she experienced onset of sharp chest pain which was intense and associated with some shortness of breath. She took a few Tums as she felt as if this could possibly be related to GERD but her pain was unrelieved than previous, for that reason she came to the emergency department for evaluation. Her EKG was without ST elevations, initial troponin 3.2. ED provider wishes to admit under observation. Hospital Course: Patient was admitted with chest pain, troponin negative x3. Seen by cardiology who recommended outpatient stress/echo later this week in cardiology clinic. Patient chest pain free at this time, DDimer also negative. Possible GERD, recommended daily ASA 81mg as well as OTC PPI and as needed Tums. WBC mildly elevated, patient reporting urinary frequency. UAM sent, results with elevated leukesterase and small amount RBC, given urinary frequency and elevated WBC will treat for UTI with macrobid. RX given to patient. Instructed to follow up with PCP for repeat UA to ensure resolution of hematuria. Vital Signs/Physical Exam: Temp Pulse Resp BP Pulse Ox 97.3 F 69 14 104/64 99 04/05/22 16:00 04/05/22 16:00 04/05/22 16:00 04/05/22 16:00 04/05/22 16:00 General: Alert, In no apparent distress, Oriented x3 HEENT: Atraumatic, PERRLA, EOMI Neck: Supple, JVD not distended Respiratory: Clear to auscultation bilaterally, Normal air movement Cardiovascular: Regular rate/rhythm, Normal S1 S2 Gastrointestinal: Normal bowel sounds, No tenderness Musculoskeletal: No tenderness Integumentary: No rashes Neurological: Normal speech, Normal tone, Normal affect Laboratory Data at Discharge: WBC 12.30 K/uL (4.3-10.9) H 04/05/22 04:11 Hgb 13.9 g/dL (12.0-15.0) 04/05/22 04:11 Hct 41.0 % (36.0-45.0) 04/05/22 04:11 Plt Count 303 K/uL (152-406) 04/05/22 04:11 Sodium 137 mmol/L (136-145) 04/05/22 04:11 Potassium 4.1 mmol/L (3.5-5.1) 04/05/22 04:11 BUN 16 mg/dL (7-18) 04/05/22 04:11 Creatinine 1.01 mg/dL (0.55-1.02) 04/05/22 04:11 Glucose 135 mg/dL (74-106) H 04/05/22 04:11 Total Bilirubin 0.2 mg/dL (0.2-1.0) 04/05/22 04:11 AST 55 U/L (15-37) H 04/05/22 04:11 ALT 43 U/L (13-56) 04/05/22 04:11 Alkaline Phosphatase 61 U/L (45-117) 04/05/22 04:11 Triglycerides 63 mg/dL (<150) 04/05/22 08:08 Cholesterol 170 mg/dL (<200) 04/05/22 08:08 HDL Cholesterol 57 mg/dL (40-60) 04/05/22 08:08 Cholesterol/HDL Ratio 2.98 04/05/22 08:08 Lipase 22 U/L (13-75) 04/05/22 04:11 Home Medications: Nitrofuran Macro [Macrobid] 100 mg PO BID #10 cap 04/05/22 New Medications: Nitrofuran Macro [Macrobid] 100 mg PO BID #10 cap Physician Discharge Instructions: Please Follow up with your primary care doctor in the next [address] Brooks in the next few days. Return to emergency room for any new or worsening symptoms. Take 81mg aspirin daily at least until you follow up with Dr. Brooks. Diet: AHA Activity: Ad krys Followup: Unknown,U [Primary Care Provider] - Arianna Bustamante MD [COURTESY - CAN ADMIT] - 1 Week Kevin Brooks MD [ACTIVE - CAN ADMIT] - 2-3 Days Time spent managing pt's care (in minutes): 25
[2022-04-05 18:36] LABS: Specific Gravity 1.006 (1.005-1.030); Urine Bacteria None Seen /HPF (<20); Urine Bilirubin NEGATIVE (Negative); Urine Blood 1+ (Negative); Urine Clarity Clear (Clear); Urine Color Colorless (Yellow); Urine Glucose NEGATIVE (Negative); Urine Protein NEGATIVE (Negative); Urine Urobilinogen Normal (Normal)
--- NOTE | 2022-04-05 18:41 | CON ---
Date of Consultation: 04/05/2022 Reason For Consultation: Chest pain. History Of Present Illness: This 41-year-old female with no medical history, smoker about half to 1 pack per day presented with this chest pain, retrosternal, sharp in nature with shortness of breath, radiates to the left shoulder. She took a few Tums that relieved the pain, [facility] EKG did not show any acute abnormalities and she was chest pain free. Past Medical History: None. Medications: None. Allergies: NO KNOWN DRUG ALLERGIES. Past Surgical History: Appendectomy. Family History: No premature coronary artery disease or cancer. Social History: She is an active smoker. Does not drink or use any drugs. Review of Systems: All systems reviewed and they were negative except for mentioned in HPI. Physical Examination: Vital Signs: Temperature is 97.4, pulse 57, breathing at 16, blood pressure is 102/69, and saturatin g 98% on room air. General: A pleasant young female, in no apparent distress. Head And Neck: Pupils are equal and reactive to light. Intact eye movements. No JVD. No cervical lymphadenopathy. Neck is supple. Thyroid is not enlarged. Lungs: Clear to auscultation bilaterally. No rhonchi, wheezing, or crackles. No accessory muscle u se. Heart: Regular rate and rhythm. No extra sounds. Abdomen: Soft, nontender. Bowel sounds positive. No organomegaly. No masses or hernia. No rigidi ty or rebound. Extremities: No edema, clubbing, or cyanosis. Intact pulses. Skin: No rash. Neurologic: Alert, awake, and oriented x3. No acute focal deficits appreciated. Investigations: Cardiac enzymes x3 are negative. BUN 16, creatinine 1.10. Hemoglobin is 13.9. Assessment/recommendation: 1.Chest pain. Cardiac enzymes are negative. EKG without acute specific abnormalities and she is ch est pain free at the present time. From Cardiology standpoint, the patient can be released to follow up as an outpatient. I will obtain a stress test and an echo on outpatient basis. 2.Smoker. The patient was counseled to quit smoking. 3.Possible acid reflux. A trial of PPI is reasonable. SR/MODL Voice ID: [id number] Report ID: [id number]
[2022-04-05 18:59] LABS: Absolute Lymphocytes (CBC) 3.1 K/uL (0.7-4.9); Lymphocytes % 33.9 % (15.3-44.8); MCV 105.4 fL (80-100); MPV 6.9 fL (7.6-11.3); RBC Red Blood Cell Count 3.51 M/uL (3.86-4.86)
[2022-04-05 20:03] LABS: Blood Morphology Comment NOTED (NOT SEEN); Macrocytosis 1+; Platelet Estimate ADEQ; White Blood Cell Scan OK (OK)
[2022-04-05] MEDS ORDERED: ATORVASTATIN 40 MG TAB PO SCH (21:00)
[2022-04-06] MEDS ORDERED: PANTOPRAZOLE 40 MG INJ IVP SCH (07:30)
== END 2022-04-05 19:59 | disposition home or self-care (01) ==
LOC: ER 03:49 → ERHOLD 05:27 → 2ND 12:22
PROVIDERS: ADMIT Internal Medicine; ATTEND Internal Medicine
DX: R07.9 Chest pain, unspecified (principal); F17.210 Nicotine dependence, cigarettes, uncomplicated; Z82.49 Family history of ischemic heart disease and other diseases of the circulatory system; Z20.822 Contact with and (suspected) exposure to COVID-19; Z23 Encounter for immunization; Z71.6 Tobacco abuse counseling
CPT/HCPCS: 93005 ×2; 85025 ×2; 81001; 36415; 84703; 80061; 85379; 84484 ×3; 83690; 80053; 71045; 90471; 87811; Q2035; C9113; J1650; J2405; G0378

== ENCOUNTER 2023-06-11 17:13 | Emergency (ER) | payer BC ==
--- NOTE | 2023-06-11 18:03 | RAD REPORT ---
EXAM DESCRIPTION: RAD - Chest Pa And Lat (2 Views) - 06/11/2023 5:58 pm CLINICAL HISTORY: Chest pain;Congestion;Cough Chest pain. COMPARISON: Chest Single View dated 04/05/2022 FINDINGS: The lungs are clear. The heart is normal in size. No displaced fractures. IMPRESSION: No acute or concerning finding suspected.
[2023-06-11 18:04] LABS: SARS-CoV-2 Antigen CONTROL BLUE LINE VIS/BG OK; SARS-CoV-2 Antigen Rapid Res Negative (Negative)
--- NOTE | 2023-06-11 18:21 | ER ---
Nurse's Notes [facility] Name: Namita Blackman Age: 42 yrs Sex: Female : 1980 Arrival Date: 06/11/2023 Time: 17:13 Bed 11 Private MD: Diagnosis: Acute upper respiratory infection, unspecified Presentation: 06/10 17:24 Chief complaint: Patient states: flu like symptoms that started Sunday. Coronavirus as6 screen: At this time, the client does not indicate any symptoms associated with coronavirus-19. Ebola Screen: No symptoms or risks identified at this time. Initial Sepsis Screen: Does the patient meet any 2 criteria? No. Patient's initial sepsis screen is negative. Does the patient have a suspected source of infection? No. Patient's initial sepsis screen is negative. Risk Assessment: Do you want to hurt yourself or someone else? Patient reports no desire to harm self or others. Onset of symptoms was June 09, 2023. 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 - Infectious Disease History:: Denies. - Social history:: Smoking status: Patient reports the use of cigarette tobacco products, smokes one-half pack cigarettes per day. Screenin:45 [facility] ED Fall Risk Assessment (Adult) History of falling in the last 3 months, me1 including since admission No falls in past 3 months (0 pts) Confusion or Disorientation No (0 pts) Intoxicated or Sedated No (0 pts) Impaired Gait No (0 pts) Mobility Assist Device Used No (0 pt) Altered Elimination No (0 pt) Score/Fall Risk Level 0 - 2 = Low Risk Maintained a safe environment, Provided non-skid footwear, Hourly rounding (assess needs \T\ fall precautionary measures) done. Abuse screen: Denies threats or abuse. Nutritional screening: No deficits noted. Tuberculosis screening: No symptoms or risk factors identified. Assessment: 17:45 General: Appears ill, well groomed, well developed, well nourished, Behavior is calm, me1 cooperative, appropriate for age, Reports fever, chills, body aches, sore throat, cough congestion that started Sunday. Pain: Denies pain. Neuro: Level of Consciousness is awake, alert, obeys commands, Oriented to person, place, time, situation, Appropriate for age. Cardiovascular: Capillary refill < 3 seconds Patient's skin is warm and dry. Respiratory: Reports cough that is persistent Airway is patent Respiratory effort is even, unlabored, Respiratory pattern is regular, symmetrical. GI: No signs and/or symptoms were reported involving the gastrointestinal system. : No signs and/or symptoms were reported regarding the genitourinary system. EENT: Reports pain when swallowing. Derm: Skin is intact, Skin is pink, warm \T\ dry. Musculoskeletal: No signs and/or symptoms reported regarding the musculoskeletal system. 18:47 General: discharge held for shot time. . me1 Vital Signs: 17:24 Pulse 81; Resp 18 S; Temp 98.4(O); Pulse Ox 99% on R/A; Weight 70.31 kg (R); Height 5 as6 ft. 3 in. (R); Pain 7/10; 17:26 BP 111 / 74; as6 17:45 BP 101 / 80; Pulse 89; Resp 18; Pulse Ox 98% on R/A; me1 18:45 BP 130 / 89; Pulse 81; Resp 16; Pulse Ox 100% on R/A; me1 19:00 BP 130 / 89; Pulse 62; Resp 18; Pulse Ox 100% on R/A; me1 17:24 Body Mass Index 27.46 (70.31 kg, 160.02 cm) as6 17:24 Pain Scale: Adult as6 ED Course: 17:15 Patient arrived in ED. im 17:17 Esha Hsieh PA-C is PHCP. sb4 17:17 Arlen Francois MD is Attending Physician. sb4 17:25 Triage completed. as6 17:26 Arm band placed on. as6 17:38 Alvina Ugalde, CHRIS is Primary Nurse. me1 17:45 Patient has correct armband on for positive identification. Bed in low position. Call me1 light in reach. Side rails up X 1. Provided Education on: POC. Verbalized understanding. . Client placed on continuous cardiac and pulse oximetry monitoring. NIBP monitoring applied. Pulse ox on. NIBP on. 17:45 Flu Sent. me1 17:45 SARS RAPID Sent. me1 17:45 Strep Sent. me1 17:45 No provider procedures requiring assistance completed. COVID swab sent to lab. Flu me1 and/or RSV swab sent to lab. Strep swab sent to lab. Patient did not have IV access during this emergency room visit. 18:00 Chest Pa And Lat (2 Views) XRAY In Process Unspecified. EDMS Administered Medications: 18:47 Drug: Dexamethasone IM 10 mg IM once Route: IM; Site: right deltoid; me1 19:00 Follow up: Response: No adverse reaction me1 18:47 Drug: Rocephin (cefTRIAXone) IM 1 grams IM once Route: IM; Site: right gluteus; me1 19:00 Follow up: Response: No adverse reaction me1 Medication: 17:45 VIS not applicable for this client. me1 Outcome: 18:21 Discharge ordered by . sb4 19:04 Discharged to home ambulatory, with significant other, me1 19:04 Condition: stable 19:04 Discharge instructions given to patient, significant other, Instructed on discharge instructions, follow up and referral plans. medication usage, Demonstrated understanding of instructions, follow-up care, medications, Prescriptions given X 2, 19:04 Patient left the ED. me1 Signatures: Dispatcher [employer] Je Salgado RN RN [email or web address] Esha Hsieh, PA-C PA-C [email or web address] Yasmeen Read Michelle RN RN me1
--- NOTE | 2023-06-11 18:21 | EDPHYS ---
Physician Documentation [facility] Name: Namita Blackman Age: 42 yrs Sex: Female : 1980 Arrival Date: 06/11/2023 Time: 17:13 Bed 11 Private MD: ED Physician Arlen Francois HPI: 06/10 17:41 This 42 yrs old Female presents to ER via Ambulatory with complaints of Flu Symptoms. sb4 17:41 flu symptoms since returning from cruise 48 hours ago. nasal congestion, sore throat, sb4 hoarse voice, ear pain, dry and painful cough, fever, body aches. has been taking tylenol and motrin for fever but no other OTC medications. no medical problems, no known underlying lung disease. 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 - Infectious Disease History:: Denies. - Social history:: Smoking status: Patient reports the use of cigarette tobacco products, smokes one-half pack cigarettes per day. ROS: 17:41 Cardiovascular: Negative for chest pain, palpitations, and edema, sb4 17:41 Constitutional: Positive for body aches, fever, 17:41 ENT: Positive for ear pain, rhinorrhea, sinus congestion, sore throat, 17:41 Respiratory: Positive for cough, 17:41 All other systems are negative, Exam: 17:41 Head/Face: Normocephalic, atraumatic. Eyes: Extra-ocular motions intact. Periorbital sb4 areas with no swelling, redness, or edema. Cardiovascular: Regular rate and rhythm with a normal S1 and S2. Respiratory: Lungs have equal breath sounds bilaterally, clear to auscultation and percussion. No rales, rhonchi or wheezes noted. No increased work of breathing, no retractions or nasal flaring. Abdomen/GI: Soft, non-tender, no distension. Skin: Warm, dry with normal turgor. Normal color with no rashes, no lesions, and no evidence of cellulitis. MS/ Extremity: Pulses equal, no cyanosis. Neurovascular intact. Full, normal range of motion. 17:41 Constitutional: The patient appears in no acute distress, alert, awake, obviously ill, 17:41 ENT: Mouth: Posterior pharynx: Tonsils: with erythema, Uvula: erythema, 17:41 Neck: Lymph nodes: no appreciated lymphadenopathy, Vital Signs: 17:24 Pulse 81; Resp 18 S; Temp 98.4(O); Pulse Ox 99% on R/A; Weight 70.31 kg (R); Height 5 as6 ft. 3 in. (R); Pain 7/10; 17:26 BP 111 / 74; as6 17:45 BP 101 / 80; Pulse 89; Resp 18; Pulse Ox 98% on R/A; me1 18:45 BP 130 / 89; Pulse 81; Resp 16; Pulse Ox 100% on R/A; me1 19:00 BP 130 / 89; Pulse 62; Resp 18; Pulse Ox 100% on R/A; me1 17:24 Body Mass Index 27.46 (70.31 kg, 160.02 cm) as6 17:24 Pain Scale: Adult as6 MDM: 17:29 Patient medically screened. sb4 18:21 Data reviewed: vital signs, nurses notes, lab test result(s), radiologic studies, and sb4 as a result, I will discharge patient. Counseling: I had a detailed discussion with the patient and/or guardian regarding the historical points, exam findings, and any diagnostic results supporting the discharge/admit diagnosis, lab results, radiology results, to return to the emergency department if symptoms worsen or persist or if there are any questions or concerns that arise at home. 05 17:38 Order name: Strep sb4 06/10 17:38 Order name: SARS RAPID; Complete Time: 18:08 sb4 06/10 17:38 Order name: Flu; Complete Time: 18:18 sb4 06/10 18:09 Order name: Throat Culture EDMS 05 17:38 Order name: Chest Pa And Lat (2 Views) XRAY; Complete Time: 18:08 sb4 Administered Medications: 18:47 Drug: Dexamethasone IM 10 mg IM once Route: IM; Site: right deltoid; me1 19:00 Follow up: Response: No adverse reaction me1 18:47 Drug: Rocephin (cefTRIAXone) IM 1 grams IM once Route: IM; Site: right gluteus; me1 19:00 Follow up: Response: No adverse reaction me1 Disposition Summary: 06/11/23 18:21 Discharge Ordered Notes: Location: Home sb4 Problem: new sb4 Symptoms: are unchanged sb4 Condition: Stable sb4 Diagnosis - Acute upper respiratory infection, unspecified sb4 Followup: sb4 - With: Emergency Department - When: As needed - Reason: Trouble breathing, Worsening of condition Discharge Instructions: - Discharge Summary Sheet sb4 - Upper Respiratory Infection, Adult, [id number] sb4 Forms: - Antibiotic Education sb4 - Patient Portal Instructions sb4 - Leadership Thank You Letter sb4 Prescriptions: - azithromycin 250 mg Oral tablet - take 1 dose pack ORAL route as directed on dose pack For 250 mg dose pack: take sb4 500 mg today (day 1), then 250 mg for 4 days (days 2-5); 1 Pack; Refills: 0, Product Selection Permitted - Guaifenesin AC 10-100 mg/5 mL Oral Liquid - take 10 milliliters ORAL route every 4 hours As needed; 240 milliliter; sb4 Refills: 0, Product Selection Permitted Signatures: Dispatcher [employer] Je Salgado RN RN as6 Esha Hsieh PARamone PANatalieC sb4 Alvina Ugalde, RN RN me1
[2023-06-11] MEDS ORDERED: dexAMETHasone 10 MG/ML VIAL ONE (18:39)
[2023-06-11] MEDS ORDERED: LIDOCAINE 1% MPF 5 ML VIAL ONE (18:39)
[2023-06-11] MEDS ORDERED: CEFTRIAXONE 1000 MG/VIAL ONE (18:39)
[2023-06-11 20:24] VITALS: BP 130/89; TEMP 98.4; O2SAT 100
== END 2023-06-11 19:04 | disposition home or self-care (01) ==
LOC: ER 17:13
DX: J06.9 Acute upper respiratory infection, unspecified (principal); F17.210 Nicotine dependence, cigarettes, uncomplicated; Z11.52 Encounter for screening for COVID-19
CPT/HCPCS: 87070; 36415; 87081; 87804 ×2; 71046; 87811; J2001; J1100; J0696; 96372; 99284

== ENCOUNTER 2023-09-25 16:25 | Emergency (ER) | payer BC ==
[2023-09-25 17:35] LABS: SARS-CoV-2 Antigen CONTROL BLUE LINE VIS/BG OK
[2023-09-25 17:36] LABS: SARS-CoV-2 Antigen Rapid Res Positive (Negative)
--- NOTE | 2023-09-25 18:35 | ER ---
Nurse's Notes [facility] Name: Namita Blackman Age: 43 yrs Sex: Female : 1980 Arrival Date: 09/25/2023 Time: 16:25 Bed DX4 Private MD: Diagnosis: SARS-associated coronavirus as the cause of diseases classified elsewhere Presentation: 09/24 16:46 Chief complaint: Patient states: COUGH, CONGESTION, DIARRHEA STARTED YESTERDAY. db Coronavirus screen: Client denies travel out of the [place] in the last 14 days. At this time, the client does not indicate any symptoms associated with coronavirus-19. Ebola Screen: Patient negative for fever greater than or equal to 101.5 degrees Fahrenheit, and additional compatible Ebola Virus Disease symptoms Patient denies exposure to infectious person. Patient denies travel to an Ebola-affected area in the 21 days before illness onset. No symptoms or risks identified at this time. Initial Sepsis Screen: Does the patient meet any 2 criteria? No. Patient's initial sepsis screen is negative. Does the patient have a suspected source of infection? No. Patient's initial sepsis screen is negative. Risk Assessment: Do you want to hurt yourself or someone else? Patient reports no desire to harm self or others. Onset of symptoms was September 23, 2022. 16:46 Method Of Arrival: Ambulatory db 16:46 Acuity: SAWYER 4 db Triage Assessment: 16:50 General: Appears in no apparent distress. comfortable, Behavior is calm, cooperative. db Pain: Complains of pain in face. EENT: Throat is reddened Reports nasal congestion. Neuro: Level of Consciousness is awake, alert, obeys commands, Oriented to person, place, time, situation. Respiratory: Airway is patent Respiratory effort is even, unlabored, Respiratory pattern is regular, symmetrical. 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 - Infectious Disease History:: Denies. - Social history:: Smoking status: Patient reports the use of cigarette tobacco products, smokes one-half pack cigarettes per day. Screenin:[address] [facility] ED Fall Risk Assessment (Adult) History of falling in the last 3 months, ll1 including since admission No falls in past 3 months (0 pts) Confusion or Disorientation No (0 pts) Intoxicated or Sedated No (0 pts) Impaired Gait No (0 pts) Mobility Assist Device Used No (0 pt) Altered Elimination No (0 pt) Score/Fall Risk Level 0 - 2 = Low Risk Maintained a safe environment, Hourly rounding (assess needs \T\ fall precautionary measures) done. Abuse screen: Denies threats or abuse. Nutritional screening: No deficits noted. Tuberculosis screening: No symptoms or risk factors identified. Assessment: 18:54 Reassessment: No changes from previously documented assessment. Patient and/or family ll1 updated on plan of care and expected duration. Pain level reassessed. Patient is alert, oriented x 3, equal unlabored respirations, skin warm/dry/pink. Vital Signs: 16:46 BP 127 / 73; Pulse 84; Resp 16; Temp 98.7; Pulse Ox 97% ; Weight 72.57 kg; Height 5 ft. db 3 in. ; 16:46 Body Mass Index 28.34 (72.57 kg, 160.02 cm) db ED Course: 16:28 Patient arrived in ED. mg5 16:29 Esha Hsieh PA-C is PHCP. sb4 16:29 Mike Ocampo MD is Attending Physician. sb4 16:50 Triage completed. db 16:50 Arm band placed on Patient placed in an exam room. db 17:33 Chest Pa And Lat (2 Views) XRAY In Process Unspecified. EDMS 18:54 Patient has correct armband on for positive identification. Provided Education on: ll1 return to ED for worsening symptoms. 18:54 No provider procedures requiring assistance completed. Patient did not have IV access ll1 during this emergency room visit. Administered Medications: No medications were administered Medication: 19:10 VIS not applicable for this client. ll1 Outcome: 18:34 Discharge ordered by . sb4 18:54 Patient left the ED. ll1 18:54 Discharged to home ambulatory, ll1 18:54 Condition: stable 18:54 Discharge instructions given to patient, Instructed on discharge instructions, follow up and referral plans. Demonstrated understanding of instructions, follow-up care, medications, Prescriptions given X 1, Signatures: Dispatcher [employer] Heather Denson RN RN ll1 Kari Ash RN RN db Esha Hsieh PARamone PARamone sb4 Alondra Dudley mg5 Corrections: (The following items were deleted from the chart) 16:51 16:46 BP 127 / 73; Pulse 84bpm; Resp 16bpm; Pulse Ox 97%; Temp 98.7F; db db
--- NOTE | 2023-09-25 18:35 | EDPHYS ---
Physician Documentation [facility] Name: Namita Blackman Age: 43 yrs Sex: Female : 1980 Arrival Date: 09/25/2023 Time: 16:25 Bed DX4 Private MD: ED Physician Mike Ocampo HPI: 09/24 17:04 This 43 yrs old Female presents to ER via Ambulatory with complaints of Flu Symptoms. sb4 17:04 joint pain, low grade fever, fatigue, malaise, sore throat, ear pain, cough starting sb4 yesterday. no alleviating/aggravating factors. some diarrhea, no nausea or vomiting. no chest pain or shortness of breath. 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 - Infectious Disease History:: Denies. - Social history:: Smoking status: Patient reports the use of cigarette tobacco products, smokes one-half pack cigarettes per day. ROS: 17:04 Cardiovascular: Negative for chest pain, palpitations, and edema, sb4 17:04 Constitutional: Positive for body aches, fatigue, fever, malaise, 17:04 ENT: Positive for ear pain, sore throat, 17:04 Respiratory: Positive for cough, 17:04 Abdomen/GI: Positive for diarrhea, 17:04 All other systems are negative, Exam: 17:04 Constitutional: This is a well developed, well nourished patient who is awake, alert, sb4 and in no acute distress. Head/Face: Normocephalic, atraumatic. Eyes: Extra-ocular motions intact. Periorbital areas with no swelling, redness, or edema. Cardiovascular: Regular rate and rhythm with a normal S1 and S2. Respiratory: Lungs have equal breath sounds bilaterally, clear to auscultation and percussion. No rales, rhonchi or wheezes noted. No increased work of breathing, no retractions or nasal flaring. Abdomen/GI: Soft, non-tender, no distension. Skin: Warm, dry with normal turgor. Normal color with no rashes, no lesions, and no evidence of cellulitis. 17:04 ENT: Posterior pharynx: erythema, that is moderate, Vital Signs: 16:46 BP 127 / 73; Pulse 84; Resp 16; Temp 98.7; Pulse Ox 97% ; Weight 72.57 kg; Height 5 ft. db 3 in. ; 16:46 Body Mass Index 28.34 (72.57 kg, 160.02 cm) db MDM: 16:47 Patient medically screened. sb4 18:33 Data reviewed: vital signs, nurses notes, lab test result(s), radiologic studies, and sb4 as a result, I will discharge patient. Independent interpretation of the following test(s) in the Emergency Department X-Ray: My interpretation is my interpretation of the chest xray images are no consolidation or other signs of pneumonia. Counseling: I had a detailed discussion with the patient and/or guardian regarding the historical points, exam findings, and any diagnostic results supporting the discharge/admit diagnosis, lab results, radiology results, to return to the emergency department if symptoms worsen or persist or if there are any questions or concerns that arise at home. 09/24 16:52 Order name: SARS RAPID; Complete Time: 17:37 sb4 09/24 16:52 Order name: Flu; Complete Time: 17:35 sb4 09/24 16:52 Order name: Strep sb4 09/24 17:38 Order name: Throat Culture EDUT 09/24 16:52 Order name: Chest Pa And Lat (2 Views) XRAY sb4 Administered Medications: No medications were administered Disposition Summary: 09/25/23 18:34 Discharge Ordered Notes: Location: Home sb4 Problem: new sb4 Symptoms: are unchanged sb4 Condition: Stable sb4 Diagnosis - SARS-associated coronavirus as the cause of diseases classified elsewhere sb4 Followup: sb4 - With: Emergency Department - When: As needed - Reason: Trouble breathing, Worsening of condition Discharge Instructions: - Discharge Summary Sheet sb4 - 10 Things You Can Do to Manage Your COVID-19 Symptoms at Home - [facility] [place] (08/20/2020) sb4 Forms: - Work release form sb4 - Patient Portal Instructions sb4 - Leadership Thank You Letter sb4 Prescriptions: - Paxlovid 300 mg (150 mg x 2)-100 mg Oral Tablet, Dose Pack - take 1 dose pack ORAL route as directed on dose pack take TWO 150 mg tablets of sb4 nirmatrelvir with ONE 100 mg tablet of ritonavir twice daily for 5 days; 1 Pack; Refills: 0, Product Selection Permitted Signatures: Dispatcher [employer] Kari Connor, RN RN Esha Casillas, JUAN MARTINEZ sb4
--- NOTE | 2023-09-25 19:17 | RAD REPORT ---
EXAM DESCRIPTION: RAD - Chest Pa And Lat (2 Views) - 09/25/2023 5:31 pm CLINICAL HISTORY: Congestion;Cough COMPARISON: Chest Pa And Lat (2 Views) dated 06/11/2023; Chest Single View dated 04/05/2022 TECHNIQUE: PA and lateral views of the chest were obtained. FINDINGS: The lungs are clear. Heart size is normal and central vasculature is within normal limits. No pleural effusion or pneumothorax seen. No acute bony finding noted. IMPRESSION: No acute cardiopulmonary process.
[2023-09-25 19:23] VITALS: BP 127/73; TEMP 98.7; O2SAT 97
== END 2023-09-25 18:54 | disposition home or self-care (01) ==
LOC: ER 16:25
DX: U07.1 COVID-19 (principal); F17.210 Nicotine dependence, cigarettes, uncomplicated
CPT/HCPCS: 36415; 71046; 87070; 87081; 87804; 87811